=== PATIENT | female | born 1965 | race Caucasian/White ===

== ENCOUNTER 2024-08-11 13:10 | Inpatient (IN) | payer OTHER, SELFPAY ==
--- NOTE | ~2024-08-11 | FL_ITS ---
EXAMINATION: FL GUIDANCE ONLY HISTORY: stone right COMPARISON: Correlation is made with a CT of the abdomen and pelvis with contrast dated 08/11/2024. TECHNIQUE: Fluoroscopy time: 12.2 seconds. Cumulative Dose: 3.31 mGy. Images: 4. FINDINGS: Fluoroscopic spot films demonstrate opacification of the mid and distal left ureter, which is normal in caliber. No filling defects are seen. The proximal portion of the ureter and the left renal collecting system are not opacified. The final image demonstrates the proximal portion of a left nephroureteral stent in place. FL/FL guidance in OR IMPRESSION: Fluoroscopy during procedure. Please see procedure report for additional information. Electronically signed by: Jeffery Reaves MD 08/12/2024 01:32 PM EDT
--- NOTE | ~2024-08-11 | US_ITS ---
CLINICAL HISTORY: RUQ tenderness, n v Limited abdominal ultrasound Comparison: None Findings: The common bile duct is normal in diameter, measuring 0.3 cm. No cholelithiasis. No wall thickening or pericholecystic fluid. Negative sonographic Issa sign. Impression: Negative for acute cholecystitis. This document has been electronically signed by: Shivani Springer MD on 08/11/2024 17:51:28
--- NOTE | ~2024-08-11 | CT_ITS ---
CLINICAL HISTORY: LLQ tenderness CT abdomen and pelvis with contrast Comparison: US - US ABDOMEN LIMITED - 08/11/24 17:21 EDT Findings: No consolidation at the lung bases. Unremarkable gallbladder. No bladder stone. Question mild wall thickening of the bladder. There is a stone in the left proximal ureter measuring 1.1 x 1.5 x 1.5 cm which causes moderate hydronephrosis. Left nephrolithiasis measures up to 1.8 cm. There is mucosal hyperenhancement of the left ureter. No right hydronephrosis. The right kidney is beginning to excrete contrast; no identified right nephrolithiasis. Hepatomegaly, measuring 21 cm in craniocaudal dimension. Thickened endometrium measuring 2.9 cm. Retroverted uterus. The other solid organs are unremarkable. No bowel wall thickening or dilation. A normal appendix is identified. No aneurysm. Moderate calcified atherosclerotic disease. No lymphadenopathy. No ascites. No acute osseous abnormality. Impression: 1.5 cm stone in the left proximal ureter causing moderate hydronephrosis. Mucosal hyperenhancement of the left ureter may indicate ureteritis. Question mild wall thickening of the bladder. Correlate with urinalysis to exclude cystitis. Thickened endometrium. Nonemergent pelvic ultrasound and referral to gynecology is recommended. This document has been electronically signed by: Shivani Springer MD on 08/11/2024 18:40:10
--- NOTE | ~2024-08-11 | CT_ITS ---
EXAMINATION: CT HEAD WITHOUT CONTRAST CLINICAL INFORMATION: headache COMPARISON: None available. TECHNIQUE: Contiguous axial imaging was performed from the skull base to vertex without intravenous administration of contrast. This CT examination was performed using dose optimization techniques as appropriate, variously including the following: *Automated exposure control *Adjustment of mA and/or kV according to patient size (this includes techniques or standardized protocols for targeted exams where dose is matched to indication/reason for exam; i.e. extremities or head) *Use of iterative reconstruction technique DLP: 643 mGy-cm FINDINGS: No acute intracranial hemorrhage, mass effect, midline shift, hydrocephalus or herniation. Focal, bandlike shaped encephalomalacia involving posterior limb left internal capsule into the left frontal ocrley radiata white matter. [place]-white matter differentiation is normal. Slight asymmetric morphology of the lateral ventricles likely congenital. Posterior cranial fossa contents demonstrated no acute hemorrhage or gross mass effect. Sellar/suprasellar region demonstrated no gross masses. Craniocervical junction demonstrates normal position of the cerebellar tonsils. Retention cysts versus polyp, right sphenoid ethmoid recess. Tympanic cavities and mastoid cells are aerated. No acute fracture in the bony calvarium. CT/CT head/brain wo IV con IMPRESSION: No acute intracranial hemorrhage. Probable prior vascular insult posterior limb, left internal capsule. Retention cysts versus polyp, right sphenoid ethmoid recess. Electronically signed by: Mani Carson MD 08/11/2024 03:36 PM EDT
[2024-08-11 13:36] VITALS: BP 140/76; PULSE 100; O2SAT 99
[2024-08-11 14:17] VITALS: BP 114/70; PULSE 107; RESP 18; TEMP 37.1; O2SAT 96; BMI 35.1
--- NOTE | 2024-08-11 14:59 | ECG_ITS ---
Test Reason : n/v Blood Pressure : */* mmHG Vent. Rate : 106 BPM Atrial Rate : 106 BPM P-R Int : 130 ms QRS Dur : 72 ms QT Int : 332 ms P-R-T Axes : 47 21 -34 degrees QTcB Int : [address] & T wave abnormality, consider inferior ischemia Abnormal ECG No previous ECGs available Referred By: Alvaro Ortega Electronically Signed By: BENJI RHOADES MD
--- NOTE | 2024-08-11 14:59 | ED.GENADULT ---
HPI - General Adult General Chief complaint: General Medical Stated complaint: NAUSEA,VOMITING,FEVER,CAMPBELL,LLQ PAIN PER EMS Time Seen by Provider: 08/11/24 15:49 Source: patient, family (daughter), EMS, RN notes reviewed and old records reviewed Mode of arrival: EMS Limitations: no limitations History of Present Illness ED Provider: Keturah [facility] narrative: Patient is a 58-year-old Samoan speaking female with history of HTN, T2DM, recent CVA within last 6 mos per daughter, recently moved here from [place] within the past month presenting to the ED from urgent care with complaint of fever, headache, myalgias, nausea, vomiting and diarrhea since yesterday. Daughter states that both she and her brother were recently sick with similar symptoms. Patient denies chest pain, palpitations, dyspnea, cough. Denies urinary symptoms. Denies hematemesis, hematochezia, melena. Daughter states patient tested negative for flu, Covid, and strep at this am. Patient complains of mild headache and LLQ pain at this time. MD complaint: fever, n/v/d, myalgias Onset (ago): day(s) Related Data Home Medications ?Medication ?Instructions ?Recorded ?Confirmed amlodipine 5 mg tablet 5 mg PO DAILY 08/11/24 08/11/24 aspirin 81 mg chewable tablet 1 tab PO DAILY 08/11/24 08/11/24 atorvastatin 80 mg tablet 80 mg PO BEDTIME 08/11/24 08/11/24 metformin 500 mg tablet 500 mg PO DAILY 08/11/24 08/11/24 metoprolol tartrate 25 mg tablet 25 mg PO BID 08/11/24 08/11/24 nicotine 14 mg/24 hr daily 1 patch topical DAILY 08/11/24 08/11/24 transdermal patch Allergies Allergy/AdvReac Type Severity Reaction Status Date / Time No Known Allergies Allergy Verified 08/11/24 14:19 Review of Systems Review of Systems: As per HPI. Yes all other systems are reviewed and are negative Constitutional: Constitutional: Reports as per HPI [facility] Past Medical History Medical History Hyperlipidemia Obesity CVA (cerebral vascular accident) Essential hypertension Type 2 diabetes mellitus Social History Social History Household Members: Children Housing: House Do you presently have visiting nurse or other home services: No Patient Tobacco Use Status: Never used Tobacco Tobacco use type: Cigarette Second Hand Smoke Exposure: No Physical Exam ED Vital Signs: Vital Signs - 24 hr 08/11/24 14:17 08/11/24 16:53 Temperature 98.8 F Pulse Rate 107 H 94 Respiratory Rate 18 18 Blood Pressure 114/70 123/70 Pulse Oximetry 96 96 Oxygen Delivery Method Room Air Room Air BMI result Body Mass Index 35.1 Vital signs have been reviewed and appear to be correct. Blood pressure normal. Heart rate slightly tachycardic. Respiratory rate normal. Temperature normal. Oxygen saturation normal. Const General: cooperative, healthy appearing and no acute distress Orientation/consciousness: oriented to person, oriented to place, oriented to time and patient oriented x3 Limitations: no limitations HENMT Head: Yes normocephalic and Yes atraumatic Ears: external ears normal General nose exam: Normal external nose present Face and sinus: Yes face symmetric Mouth: oropharynx normal and moist mucous membranes Throat: Yes uvula midline Eyes Pupils: Equal, round and reactive pupils present Neck Neck: Yes normal visual inspection and Yes supple Resp Effort & Inspection: normal respiratory effort and able to speak in complete sentences Auscultation: clear to auscultation bilaterally Cardio Rate: regular rate Rhythm: regular rhythm Heart sounds: S1 normal heart sound present and S2 normal heart sound present GI Palpation (GI): Soft to palpation, Tenderness to palpation present (GI) in the LLQ and in the RUQ (mild, neg Issa's), no guarding and No Rebound tenderness present Auscultation: normoactive bowel sounds General: Yes no CVA tenderness Back/Spine/Pelvis Back: no CVA tenderness Skin General skin exam: elasticity normal and turgor normal Neuro General: oriented to person, oriented to place, oriented to time, patient oriented x3, moves all extremities, no focal motor deficits and CN's II-XI intact bilaterally Cranial nerves: Yes Equal, round and reactive pupils present Cognition (Neuro): normal cognition Extrem General: Yes full ROM, Yes no pedal edema and Yes no calf tenderness Psych Mental Status: mental status grossly normal Affect: normal affect Thought process: Normal thought process present Course Course Course Narrative: RME: 58-year-old female with history of stroke presents to ED for nausea vomiting abdominal pain and headache patient was sent from urgent Care to the ED for evaluation. Patient was giving some lingual and Zofran at urgent care and symptoms resolve but patient came to ED to be evaluated. Labs EKG head CT scan UA ordered Medications Administered Generic Name Dose Route Start Last Admin Trade Name Kristie PRN Reason Stop Dose Admin Amlodipine Besylate 5 mg 08/12/24 09:00 08/12/24 08:50 Amlodipine Besylate 5 Mg Tablet PO 5 mg DAILY CRICKET Administration Protocol Ceftriaxone Sodium 1 gm 08/12/24 09:00 08/12/24 08:50 Ceftriaxone Sodium 1 Gm Vial IVPUSH 1 gm Q24H CRICKET Administration Sodium Chloride 1,000 mls @ 100 mls/hr 08/12/24 16:15 08/12/24 16:30 Ns IVCONT 100 mls/hr .Q10H CRICKET Administration Insulin Human Lispro 0 unit 08/11/24 21:00 08/12/24 21:18 Insulin Lispro 100 Unit/Ml 3 Ml Vial SUBCUT Not Given QIDACHS CRICKET Protocol Metoprolol Tartrate 25 mg 08/12/24 09:00 08/12/24 08:50 Metoprolol Tartrate 25 Mg Tablet PO 25 mg BID CRICKET Administration Protocol Nicotine 14 mg 08/12/24 09:00 08/12/24 09:06 Nicotine 14 Mg Patch.Td24 TRANSDERMA Not Given DAILY CRICKET Nicotine Polacrilex 2 mg 08/12/24 16:08 08/12/24 16:31 Nicotine Polacrilex 2 Mg Gum BUCCAL 2 mg Q2H PRN Administration Nicotine Cravings Sodium Chloride 3 ml 08/12/24 00:00 08/12/24 16:33 0.9 % Sodium Chloride Flush 3 Ml Syringe IVFLUSH 3 ml QSHIFT CRICKET Administration Discontinued Medications Generic Name Dose Route Start Last Admin Trade Name Kristie PRN Reason Stop Dose Admin Ceftriaxone Sodium 1 gm 08/11/24 18:47 08/11/24 19:17 Ceftriaxone Sodium 1 Gm Vial IVPUSH 08/11/24 18:48 1 gm ONCE ONE Administration Hydromorphone HCl 0.25 mg 08/12/24 12:06 08/12/24 13:22 Hydromorphone Hcl 0.5 Mg/0.5 Ml Syringe IVPUSH 08/12/24 18:07 0.25 mg Q5M PRN Administration Pain, Moderate to Severe (Pain Scale 4-10) Lactated Ringer's 1,000 mls @ 80 mls/hr 08/11/24 20:30 08/12/24 13:54 Lr IVCONT 08/12/24 08:59 Infused .[id number] CRICKET Infusion Iohexol 100 ml 08/11/24 17:38 08/11/24 17:38 Iohexol 350 Mg/Ml 100 Ml Infus..Btl IV 08/11/24 17:39 85 ml ONCE ONE Administration Prednisone 20 mg 08/11/24 18:51 08/11/24 19:17 Prednisone 20 Mg Tablet PO 08/11/24 18:52 20 mg ONCE ONE Administration Medical Decision Making Medical Decision Making MDM Narrative: Patient is a 58-year-old female with history of HTN, T2DM, recent CVA within last 6 mos per daughter, recently moved here from [place] within the past month presenting to the ED from urgent care with complaint of fever, headache, myalgias, nausea, vomiting and diarrhea since yesterday. On exam patient is awake, A+Ox3, VS WNL, afebrile, normal neurological exam without focal deficits, physical exam findings as above. Given reported symptoms and physical exam findings, initial differential includes but is not limited to viral illness, Covid, flu, gastroenteritis, cholecystitis, diverticulitis. Labs notable for no leukocytosis, no significant electrolyte abnormalities, elecated Tbili, slightly elevated AST and alk phos. CT head ordered by triage provider notable for no acute ICH, probably prior vascular insult posterior limb which correlates with daughter's report of recent CVA. RUQ U/S without evidence of cholecystitis. My interpretation is in agreement with the radiologist's interpretation. UA notable for 3+ leukocytes, 3+ blood, positive nitrites, 4+ bacteria. Viral panel negative. CT A/P notable for 1.5cm stone to proximal left ureter with moderate hydro and mucosal hyperenhancement of the left ureter, question of mild wall thickening of bladder. IV ceftriaxone and prednisone ordered. Case discussed with Dr. Stacy who would like patient admitted and NPO after midnight. Admission to medicine accepted by Dr. Peña. Differential Diagnosis Differential Diagnoses: The differential diagnosis associated with the presentation includes As per [facility] Admission/Observation Consideration of admission/observation: Escalation of care including admission/observation considered Patient would have been admitted to the hospital had their work up had any findings where hospital admission was appropriate and their clinical presentation warranted hospital admission. Consult Healthcare Provider Management of the patient was discussed with: Hospitalist and Phlebotomy Support Tech (Dr. Stacy) Lab Data [facility] Lab Attestation statement: I reviewed the patient's lab results. As per [facility] 08/11/24 20:32 08/12/24 07:49 Labs: Lab Results 08/11/24 08/11/24 Range/Units 15:20 16:51 WBC 8.3 (4.8-10.8) X10*3/uL RBC 4.17 L (4.20-5.50) X10*6/uL Hgb 12.2 (12.0-16.0) g/dl Hct 35.3 L (37.0-47.0) % MCV 84.7 (80.0-98.0) fL MCH 29.3 (27.0-33.0) pg MCHC 34.6 (31.0-35.0) g/dl RDW 11.9 (11.0-16.0) % Plt Count 169 (160-400) X10*3/uL MPV 10.4 (9.4-12.3) fL Immature Gran % (Auto) 0.4 (0.0-0.4) % Neut % (Auto) 78.1 H (45-73) % Lymph % (Auto) 12.2 L (20-40) % [place] % (Auto) 9.2 (2-11) % Eos % (Auto) 0.0 (0-4) % Baso % (Auto) 0.1 (0-2) % Lymph # (Auto) 1.0 L (1.2-4.9) X10*3/uL [place] # (Auto) 0.8 (0.1-1.2) X10*3/uL Eos # (Auto) 0.0 (0.0-0.4) X10*3/uL Baso # (Auto) 0.0 (0.0-0.2) X10*3/uL Abs Immat Gran (auto) 0.03 (0.00-0.03) X10*3/uL Absolute Neuts (auto) 6.5 (2.0-8.3) x10*3/uL Absolute Nucleated RBC 0.000 (0.0-0.012) X10*3/uL Nucleated RBC % (auto) 0.0 (0.0-0.2) /100WBC Sodium 133 L (135-145) mmol/L Potassium 3.5 (3.3-5.1) mmol/L Chloride 101 (96-108) mmol/L Carbon Dioxide 23 (22-29) mmol/L Anion Gap 13 (12-20) BUN 11 (9-16) mg/dL Creatinine 0.86 (0.5-1.4) mg/dL Estim Creat Clear Calc 59.8 Estimated GFR > 60 Random Glucose 205 H (60-115) mg/dL Calcium 9.4 (8.4-10.2) mg/dL Total Bilirubin 2.4 H (0.0-1.0) mg/dL AST 39 H (5-31) U/L ALT 22 (0-31) U/L Alkaline Phosphatase 137 H (39-117) U/L Troponin I High Sens < 2.7 (<3.5-17.0) ng/L Total Protein 7.8 (6.5-8.0) g/dL Albumin 4.2 (3.5-5.0) g/dL Lipase 23 (8-78) U/L Urine Color Dark Yellow Urine Appearance Turbid Urine pH 6.0 (5.0-9.0) Ur Specific [place] 1.015 (1.005-1.025) Urine Protein 100 (2+) H (Neg-Trace) mg/dL Urine Glucose (UA) Negative (Negative) mg/dL Urine Ketones Trace (Negative) mg/dL Urine Blood Large (3+) H (Negative) Urine Nitrite Positive H (Negative) Ur Leukocyte Esterase Large (3+) H (Negative) Urine RBC 11-20 H (0-2) /HPF Urine WBC >50 H (0-5) /HPF Ur Squamous Epith Cells 6-10 (0-2) /HPF Urine Bacteria 4+ (None Seen) Hyaline Casts 0-2 (0-2) /LPF Influenza Type A (PCR) NEGATIVE (Negative) Influenza Type B (PCR) NEGATIVE (Negative) RSV RNA Qual (PCR) NEGATIVE (Negative) SARS-CoV-2 RNA (RT-PCR) NEGATIVE (Negative) Independent Interpretation I performed an independent interpretation of an: Ultrasound and CT Scan Interpretation: RUQ U/S without evidence of cholecystitis. Radiology Impression Discussion of test interpretation with radiology: I have reviewed the radiologist's reading. Radiologist Impression: Impression: 1.5 cm stone in the left proximal ureter causing moderate hydronephrosis. Mucosal hyperenhancement of the left ureter may indicate ureteritis. Question mild wall thickening of the bladder. Correlate with urinalysis to exclude cystitis. Thickened endometrium. Nonemergent pelvic ultrasound and referral to gynecology is recommended. CLINICAL HISTORY: RUQ tenderness, n v Limited abdominal ultrasound Comparison: None Findings: The common bile duct is normal in diameter, measuring 0.3 cm. No cholelithiasis. No wall thickening or pericholecystic fluid. Negative sonographic Issa sign. Impression: Negative for acute cholecystitis. Independent Historian Clinical information obtained from an independent historian. History obtained from or confirmed by: Other (daughter) External Record Review External record reviewed: Inpatient record, Office record and Outpatient record Prescription Management I considered prescription management with: Antibiotic Discharge Plan Discharge Clinical Impression: Hydronephrosis with urinary obstruction due to ureteral calculus UTI (urinary tract infection) Qualifiers: Urinary tract infection type: acute cystitis Hematuria presence: without hematuria Qualified Code(s): N30.00 - Acute cystitis without hematuria Patient Disposition: Admitted As Inpatient Discharge Date/Time: 08/12/24 09:48
[2024-08-11 15:25] LABS: MANUAL DIFF FLAG NO
[2024-08-11 15:26] LABS: Basophils Percent Auto 0.1 % (0-2); Hematocrit 35.3 % (37.0-47.0); Hemoglobin 12.2 g/dl (12.0-16.0); Imm Gran Abs Auto 0.03 X10*3/uL (0.00-0.03); Imm Gran Pct Auto 0.4 % (0.0-0.4); Lymphocytes Percent Auto 12.2 % (20-40); Mean Corpuscular HGB Conc 34.6 g/dl (31.0-35.0); Mean Corpuscular Hemoglobin 29.3 pg (27.0-33.0); Mean Corpuscular Volume 84.7 fL (80.0-98.0); Mean Platelet Volume 10.4 fL (9.4-12.3); Monocytes Absolute Auto 0.8 X10*3/uL (0.1-1.2); Monocytes Percent Auto 9.2 % (2-11); Neutrophils Absolute Auto 6.5 x10*3/uL (2.0-8.3); Neutrophils Percent Auto 78.1 % (45-73); Platelet Count 169 X10*3/uL (160-400); Red Blood Count 4.17 X10*6/uL (4.20-5.50); Red Cell Distribution Width 11.9 % (11.0-16.0); White Blood Count 8.3 X10*3/uL (4.8-10.8)
[2024-08-11 15:45] LABS: Alanine Aminotransferase 22 U/L (0-31); Albumin Level 4.2 g/dL (3.5-5.0); Alkaline Phosphatase 137 U/L (39-117); Anion Gap 13 (12-20); Aspartate Amino Transferase 39 U/L (5-31); Bilirubin Total 2.4 mg/dL (0.0-1.0); Blood Urea Nitrogen 11 mg/dL (9-16); Calcium 9.4 mg/dL (8.4-10.2); Carbon Dioxide 23 mmol/L (22-29); Chloride 101 mmol/L (96-108); Creatinine Clr Calc Pharmacy 59.8; Estimated Glomerular Filt Rate > 60; Glucose Random 205 mg/dL (60-115); Lipase 23 U/L (8-78); Potassium 3.5 mmol/L (3.3-5.1); Sodium 133 mmol/L (135-145); Total Protein 7.8 g/dL (6.5-8.0)
[2024-08-11 15:53] LABS: Troponin-I High Sensitivity < 2.7 ng/L (<3.5-17.0)
[2024-08-11 16:53] VITALS: BP 123/70; PULSE 94; RESP 18; O2SAT 96
[2024-08-11 17:02] LABS: Appearance Urine Turbid; Color Urine Dark Yellow; Glucose Urine UA Negative (Negative); Leukocyte Esterase Urine Large (3+) (Negative); Nitrite Urine Positive (Negative); Specific Gravity - Urine 1.015 (1.005-1.025); UMIC TRIGGER UACC YES; Urine Blood Large (3+) (Negative); Urine Ketones Trace mg/dL (Negative); Urine Protein 100 (2+) mg/dL (Neg-Trace)
[2024-08-11 17:04] LABS: Bacteria Urine 4+ (None Seen); Hyaline Casts Urine 0-2 /LPF (0-2); UACC Culture Trigger YES; WBC Urine >50 /HPF (0-5)
[2024-08-11] MEDS: iohexoL 350 MG/ML 100 ML INFUS..BTL IV (17:38)
[2024-08-11 17:47] LABS: Influenza A PCR NEGATIVE (Negative); Influenza B PCR NEGATIVE (Negative); Resp Syncy Virus RNA Qual PCR NEGATIVE (Negative); SARS COV2 PCR INHOUSE NEGATIVE (Negative)
--- OUTSIDE RECORDS SUMMARY | 2024-08-11 18:07 | XMS_ITS | Clinical Summary ---
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 Name Role Phone Mirna Stringer MD Primary Care Provider [phone] Social History Tobacco Use Types Packs/Day Years Used Date Smoking Tobacco: Never Assessed Comments Unknown Sex and Gender Information Value Date Recorded Sex Assigned at Not on file Legal Sex Female 7:28 AM EDT Gender Identity Not on file Sexual Orientation Not on file Plan of Treatment Upcoming Encounters Date Type Department Care Team ([facility] Contact Info) Description 10/13/2024 9:00 AM EDT Consult Orthopedic Surgery - [place] [address] [phone] Chip Cerda, DPM [address] [address] Health Maintenance Due Date Last Done Comments Breast Cancer Screening 1966 DTaP,Tdap,and Td Vaccines (1 - Tdap) 1985 Hepatitis B Vaccines (1 of 3 - 19+ 3-dose series) 1985 Cervical Cancer Screening: P ap Smear 08/18/1987 Pneumococcal Vaccine: 50+ Ye ars (1 of 1 - PCV) 2016 Zoster Vaccines (1 of 2) 2016 COVID-19 Vaccine (2023-2 5 season) 2023 Colorectal Cancer Screening: Colonoscopy 07/21/2024 Depression Screening 07/21/2024 HIV Screening 07/21/2024 Hepatitis C Screening 07/21/2024 Social Influencers of Health Screening 07/21/2024 Influenza Vaccine (Season Ended) 2024 HIB Vaccines Aged Out No longer eligi ble based on patient's age to complete this topic HPV Vaccines Aged Out No longer eligi ble based on patient's age to complete this topic Hepatitis A Vaccines Aged Out No long er eligible based on patient's age to complete this topic IPV Vaccines Aged Out No longer eligi ble based on patient's age to complete this topic MMR Vaccines Aged Out No longer eligi ble based on patient's age to complete this topic Meningococcal ACWY Vaccine Aged Out N o longer eligible based on patient's age to complete this topic Meningococcal B Vaccine Aged Out No l onger eligible based on patient's age to complete this topic Pneumococcal Vaccine: Pediat rics (0 to 5 Years) and At-Risk Patients (6 to 64 Years) Aged Out No longer eligible b ased on patient's age to complete this topic RSV Immunization Patients Un misti 20 months Aged Out No longer eligible b ased on patient's age to complete this topic Varicella Vaccines Aged Out No longer eligible based on patient's age to complete this topic Insurance [facility] Care Teams Scrap Crane Operator Relationship Specialty Start Date End Date Mirna Stringer MD [address] [place] [address] PCP - General Internal Medicine 07/21/24
[2024-08-11] MEDS: predniSONE 20 MG TABLET PO (19:17)
[2024-08-11] MEDS: cefTRIAXone sodium 1 GM VIAL IVPUSH (19:17)
--- NOTE | 2024-08-11 19:46 | P.CNUR_ITS ---
History of Present Illness Consult details Consult date: 08/11/24 Narrative: CC: Renal stone right 58-year-old Belizean-speaking female prior history type 2 diabetes Presents to emergency room after transfer from urgent care Complaint of fever, weakness, nausea, vomiting for past 24 hours Denies urinary symptoms such as dysuria, hematuria Investigations - WBC 8.3 creatinine 0.8 - UA positive nitrites positive bacteria positive leukocytes Imaging - CT 1.5 cm stone in the left proximal ureter causing moderate hydronephrosis. Mucosal hyperenhancement of the left ureter may indicate ureteritis. Recommend admission to Medicine IV fluids IV antibiotics NPO after midnight with plan for stent placement tomorrow Review of Systems 2 Constitutional: Constitutional: Reports as per HPI and Reports no additional constitutional complaints Cardiovascular: Cardiovascular: Reports as per HPI and Reports no additional cardiovascular complaints Respiratory: Respiratory: Reports as per HPI and Reports no additional respiratory complaints Gastrointestinal: Gastrointestinal: Reports as per HPI and Reports no additional gastrointestinal complaints Genitourinary: Genitourinary: Reports as per HPI Musculoskeletal: Musculoskeletal: Reports no additional musculoskeletal complaints and Reports as per HPI Neurologic: Reports system reviewed and no additional complaints, except as documented and Reports as per HPI [facility] Social History Social History Smoked in Last 30 Days: No Use of substances other than those prescribed or required for medical reasons: No Advance Directives: No Advance Directives Information Provided: No Do you have a plan to hurt others: No Plan Patient : No Meds Allergies Allergy/AdvReac Type Severity Reaction Status Date / Time No Known Allergies Allergy Verified 08/11/24 14:19 Home Medications ?Medication ?Instructions ?Recorded ?Confirmed ?Last Taken ?Type amlodipine 5 mg tablet 5 mg PO DAILY 08/11/24 Unknown History aspirin 81 mg chewable tablet 1 tab PO DAILY 08/11/24 Unknown History atorvastatin 80 mg tablet 80 mg PO BEDTIME 08/11/24 Unknown History metformin 500 mg tablet 500 mg PO QAM 08/11/24 Unknown History metoprolol tartrate 25 mg tablet 25 mg PO BID 08/11/24 Unknown History nicotine 14 mg/24 hr daily 1 patch topical DAILY 08/11/24 Unknown History transdermal patch Physical Exam 2 Vital Signs: Vital Signs: Last Vital Signs Temp 98.8 F 08/11/24 14:17 Pulse 94 08/11/24 16:53 Resp 18 08/11/24 16:53 BP 123/70 08/11/24 16:53 Pulse Ox 96 08/11/24 16:53 O2 Del Method Room Air 08/11/24 16:53 BMI result Body Mass Index 35.1 Const: General: cooperative, healthy appearing, comfortable and no acute distress Orientation/consciousness: patient oriented x3 HEENT: Face and sinus: Yes normal facial exam Mouth: moist mucous membranes Neck: Neck: Yes normal visual inspection, Yes full ROM and Yes trachea midline Chest: Chest palpation & inspection: normal inspection of the chest Resp: Effort & Inspection: normal respiratory effort, able to speak in complete sentences and no respiratory distress GI: Inspection: Yes normal to inspection Back/Spine/Pelvis: Cervical Spine: normal cervical lordosis Thoracic/Lumbar Spine: thoracic and lumbar spine normal to inspection Skin: General skin exam: no rashes or lesions noted Neuro: General: patient oriented x3, tone normal and moves all extremities Extrem: General: Yes normal to inspection and Yes capillary refill normal Results Labs 08/11/24 15:20 08/11/24 15:20 Labs: Abnormal lab results 08/11/24 08/11/24 Range/Units 15:20 16:51 RBC 4.17 L (4.20-5.50) X10*6/uL Hct 35.3 L (37.0-47.0) % Neut % (Auto) 78.1 H (45-73) % Lymph % (Auto) 12.2 L (20-40) % Lymph # (Auto) 1.0 L (1.2-4.9) X10*3/uL Sodium 133 L (135-145) mmol/L Random Glucose 205 H (60-115) mg/dL Total Bilirubin 2.4 H (0.0-1.0) mg/dL AST 39 H (5-31) U/L Alkaline Phosphatase 137 H (39-117) U/L Urine Protein 100 (2+) H (Neg-Trace) mg/dL Urine Blood Large (3+) H (Negative) Urine Nitrite Positive H (Negative) Ur Leukocyte Esterase Large (3+) H (Negative) Urine RBC 11-20 H (0-2) /HPF Urine WBC >50 H (0-5) /HPF Short CBC 08/11/24 Range/Units 15:20 WBC 8.3 (4.8-10.8) X10*3/uL Hgb 12.2 (12.0-16.0) g/dl Hct 35.3 L (37.0-47.0) % Plt Count 169 (160-400) X10*3/uL BMP 08/11/24 15:20 Sodium 133 L Potassium 3.5 Chloride 101 Carbon Dioxide 23 BUN 11 Creatinine 0.86 Calcium 9.4 Liver Function 08/11/24 Range/Units 15:20 Total Bilirubin 2.4 H (0.0-1.0) mg/dL AST 39 H (5-31) U/L ALT 22 (0-31) U/L Alkaline Phosphatase 137 H (39-117) U/L Albumin 4.2 (3.5-5.0) g/dL Urine 08/11/24 Range/Units 16:51 Urine Color Dark Yellow Urine Appearance Turbid Urine pH 6.0 (5.0-9.0) Ur Specific [place] 1.015 (1.005-1.025) Urine Protein 100 (2+) H (Neg-Trace) mg/dL Urine Glucose (UA) Negative (Negative) mg/dL All other labs normal. Assessment and Plan (1) Hydronephrosis with urinary obstruction due to ureteral calculus: Status: Acute (2) UTI (urinary tract infection): Status: Acute Plan Risks, benefits and alternatives to therapy were discussed. These include but are not limited to infection, bleeding, damage to local organs and tissues, need for further interventions. Anesthetic risks regarding cardiac arrhythmia, blood clots, and potential mortality were discussed. The patient understands the typical recovery time and the outpatient nature of the procedure. After consideration of these risks the patient gives full informed consent and they wish to move ahead with the procedure. Cystoscopy, right retrograde, right stent placement Procedures Date of Service Date of Service: 08/11/24
--- NOTE | 2024-08-11 20:26 | P.HPHOSP_ITS ---
History of Present Illness Date of Service: 08/11/24 Attending physician on admission: Devendra Delgadillo Chief Complaint: Abdominal pain Juli Peña is a 58 years old woman with past medical history significant for recent CVA, essential hypertension, hyperlipidemia and type 2 diabetes mellitus on metformin presents to the emergency department complaining of 3 days' history of left lower quadrant pain associated with mild pain with urination, nausea, fever, chills, vomiting, loose stools and headache. Denied bloody urine. She described pain as sharp radiating to the genitals; intensity 10/10 (but now 0/10). She had a similar episode in the past but never have had urinary interventions. She did not report chest pain or shortness on breath. He is a tobacco and marijuana smoker. She denied alcohol abuse or illicit drug use. She denied any abdominal surgeries. In the ED, she was found to have stable vital signs. Blood workup showed no leukocytosis. Hemoglobin is 11.5 and platelets 120. There are no significant electrolyte imbalances. Renal function is normal. Glucose is 205. LFTs: Bilirubin 2.4, AST 39, ALT 22 and alk-phos 137. Troponin and lipase are normal. Abdomen pelvis CT scan showed renal calculi that measure 1.5 cm in the left proximal ureter causing moderate hydronephrosis, and finding likely consistent with ureteritis and cystitis. It was noted that her endometrium was thickened and non Urgent pelvic ultrasound was recommended. ED tx: Ceftriaxone 1 g IV, prednisone 20 mg p.o. Review of Systems 2 Review of Systems: All 12 systems were reviewed and normal except as noted in HPI. [facility] Medical History (Updated 08/11/24 @ 21:17 by Devendra Delgadillo MD) Hyperlipidemia Obesity CVA (cerebral vascular accident) Essential hypertension Type 2 diabetes mellitus Social History Smoked in Last 30 Days: No Use of substances other than those prescribed or required for medical reasons: No Advance Directives: No Advance Directives Information Provided: No Do you have a plan to hurt others: No Plan Patient : No Meds Allergies Allergy/AdvReac Type Severity Reaction Status Date / Time No Known Allergies Allergy Verified 08/11/24 14:19 Active Medications: Current Medications Acetaminophen (Acetaminophen 325 Mg Tablet) 650 mg PO Q6H PRN PRN Reason: Pain, Mild 1-3,fever,headache Calcium Carbonate (Calcium Carbonate 750 Mg Tab.Chew) 750 mg PO Q4H PRN PRN Reason: Heartburn Dextrose (Dextrose 50 % 25 Gm/50 Ml Syringe) 25 gm IVPUSH Q15M PRN; Protocol PRN Reason: per Hypoglycemia Standing Ord. Glucose (Glucose Gel 15 Gm Gel..Gram.) 15 gm PO Q15M PRN; Protocol PRN Reason: per Hypoglycemia Standing Ord. Hydromorphone HCl (Hydromorphone Hcl 0.5 Mg/0.5 Ml Syringe) 0.5 mg IVPUSH Q3H PRN; Protocol PRN Reason: Pain, Severe (Pain Scale 7-10) Lactated Ringer's (Lr) 1,000 mls @ 80 mls/hr IVCONT .[id number] [facility] Stop: 08/12/24 08:59 Insulin Human Lispro (Insulin Lispro 100 Unit/Ml 3 Ml Vial) 0 unit SUBCUT QIDACHS [facility]; Protocol Ketorolac Tromethamine (Ketorolac Tromethamine 15 Mg/Ml Vial) 15 mg IVPUSH Q6H PRN PRN Reason: Pain, Moderate(Pain Scale 4-6) Magnesium Hydroxide (Milk Of Magnesia 30 Ml Oral.Susp) 30 ml PO DAILY PRN PRN Reason: Constipation Melatonin (Melatonin 3 Mg Tablet) 6 mg PO BEDTIME PRN PRN Reason: Insomnia Ondansetron HCl (Ondansetron Hcl 4 Mg/2 Ml Vial) 4 mg IVPUSH Q6H PRN PRN Reason: Nausea and Vomiting Sodium Chloride (0.9 % Sodium Chloride Flush 3 Ml Syringe) 3 ml IVFSH [facility] Home Medications ?Medication ?Instructions ?Recorded ?Confirmed ?Last Taken ?Type amlodipine 5 mg tablet 5 mg PO DAILY 08/11/24 08/11/24 08/11/24 History aspirin 81 mg chewable tablet 1 tab PO DAILY 08/11/24 08/11/24 08/11/24 History atorvastatin 80 mg tablet 80 mg PO BEDTIME 08/11/24 08/11/24 08/10/24 History metformin 500 mg tablet 500 mg PO DAILY 08/11/24 08/11/24 08/11/24 History metoprolol tartrate 25 mg tablet 25 mg PO BID 08/11/24 08/11/24 08/11/24 History nicotine 14 mg/24 hr daily 1 patch topical DAILY 0608/11/24 08/11/24 History transdermal patch Physical Exam 2 Vital Signs and Narrative: Vital Signs: Last Vital Signs Temp 98.8 F 08/11/24 14:17 Pulse 94 08/11/24 16:53 Resp 18 08/11/24 16:53 BP 123/70 08/11/24 16:53 Pulse Ox 96 08/11/24 16:53 O2 Del Method Room Air 08/11/24 16:53 BMI result Body Mass Index 35.1 Constitutional - Awake and Alert, No apparent distress. Pleasant. Cooperative. Obese. HEENT - PER, EOMI. Icteric sclerae. Heart - S1S2, RRR, No edema Lungs - Normal lung expansion, Normal respiratory effort, No respiratory distress, CTA bilaterally Abdomen - NT / ND; +BS; No rebound or guarding. - No CVA tenderness Extremities - no calf tenderness bilaterally, no swelling Musculoskeletal - Normal inspection, normal ROM Skin - Warm/Dry Neurological - Alert & oriented x3. No focal weakness grossly noted. Normal speech. Psychological - Appropriate affect Results Labs 08/11/24 20:32 08/11/24 15:20 Labs: Laboratory Results - last 24 hr 08/11/24 08/11/24 15:20 16:51 MCV 84.7 MCH 29.3 MCHC 34.6 RDW 11.9 Plt Count 169 MPV 10.4 Immature Gran % (Auto) 0.4 Neut % (Auto) 78.1 H Lymph % (Auto) 12.2 L [place] % (Auto) 9.2 Eos % (Auto) 0.0 Baso % (Auto) 0.1 Lymph # (Auto) 1.0 L [place] # (Auto) 0.8 Eos # (Auto) 0.0 Baso # (Auto) 0.0 Abs Immat Gran (auto) 0.03 Absolute Neuts (auto) 6.5 Absolute Nucleated RBC 0.000 Nucleated RBC % (auto) 0.0 Anion Gap 13 Estim Creat Clear Calc 59.8 Estimated GFR > 60 Random Glucose 205 H Calcium 9.4 Total Bilirubin 2.4 H AST 39 H ALT 22 Alkaline Phosphatase 137 H Troponin I High Sens < 2.7 Total Protein 7.8 Albumin 4.2 Lipase 23 Urine Color Dark Yellow Urine Appearance Turbid Urine pH 6.0 Ur Specific [place] 1.015 Urine Protein 100 (2+) H Urine Glucose (UA) Negative Urine Ketones Trace Urine Blood Large (3+) H Urine Nitrite Positive H Ur Leukocyte Esterase Large (3+) H Urine RBC 11-20 H Urine WBC >50 H Ur Squamous Epith Cells 6-10 Urine Bacteria 4+ Hyaline Casts 0-2 Influenza Type A (PCR) NEGATIVE Influenza Type B (PCR) NEGATIVE RSV RNA Qual (PCR) NEGATIVE SARS-CoV-2 RNA (RT-PCR) NEGATIVE Imaging Radiologist's Impressions: Impressions Head CT 08/11/24 14:07 IMPRESSION: No acute intracranial hemorrhage. Probable prior vascular insult posterior limb, left internal capsule. Retention cysts versus polyp, right sphenoid ethmoid recess. Electronically signed by: Mani Carson MD 08/11/2024 03:36 PM EDT RP Assessment and Plan (1) Hydronephrosis with urinary obstruction due to ureteral calculus: Status: Acute (2) UTI (urinary tract infection): Qualifiers: Urinary tract infection type: acute cystitis Hematuria presence: w ithout hematuria Qualified Code(s): N30.00 - Acute cystitis without hematuria Status: Acute Plan Juli Peña is a 58 years old woman admitted with: * Left hydronephrosis secondary to obstructive renal calculi (1.5 cm) associated with UTI. Admit to hospitalist service. NPO after midnight. Continue IV fluids. Pain control with Dilaudid and Zofran IV as needed. Continue empiric IV antibiotic therapy with ceftriaxone. Urology consult. Urine and blood culture obtained -will follow results. * Type 2 diabetes mellitus. Metformin on hold (received IV contrast). Insulin sliding scale while NPO. * Recent CVA. Continue aspirin and statin. * Essential hypertension. Continue amlodipine and metoprolol. * Hyperlipidemia. Continue atorvastatin. Code status: Full DVT prophylaxis: SCDs only (possible procedure in am). Patient will need hospitalization for at least 2 midnights for left hydronephrosis secondary to obstructive renal stone associated with UTI treatment with IV fluids, IV pain meds, empiric IV antibiotic therapy and evaluation by Urology for possible procedure. Quality Stroke Does the patient have a stroke diagnosis?: No VTE Prior VTE?: No VTE Risk Level:: Medical - moderate - high VTE Device Contraindication: N/A - Device Ordered VTE Drug Contraindication: Treatment Not Indicated
[2024-08-11] MEDS: Lactated Ringers 1,000 ML 80 ML IVCONT (20:31)
--- NOTE | 2024-08-11 20:33 | PHA.MEDREC ---
Addendum entered by Viviane Edgar RPh 08/11/24 21:04: reviewed Original Note: Pharmacy Consult ? Medication Reconciliation Pharmacy has completed the medication reconciliation. Spoke to patient son at bedside to confirm med list. Patient had her morning medications today.
[2024-08-11 20:36] VITALS: BP 123/61; PULSE 99; RESP 18; O2SAT 94
[2024-08-11 20:38] LABS: MANUAL DIFF FLAG NO
[2024-08-11 20:43] LABS: Basophils Percent Auto 0.3 % (0-2); Hematocrit 32.4 % (37.0-47.0); Hemoglobin 11.5 g/dl (12.0-16.0); Imm Gran Abs Auto 0.03 X10*3/uL (0.00-0.03); Imm Gran Pct Auto 0.4 % (0.0-0.4); Lymphocytes Absolute Auto 0.9 X10*3/uL (1.2-4.9); Lymphocytes Percent Auto 11.5 % (20-40); Mean Corpuscular HGB Conc 35.5 g/dl (31.0-35.0); Mean Corpuscular Hemoglobin 29.8 pg (27.0-33.0); Mean Corpuscular Volume 83.9 fL (80.0-98.0); Mean Platelet Volume 10.1 fL (9.4-12.3); Monocytes Absolute Auto 0.7 X10*3/uL (0.1-1.2); Monocytes Percent Auto 9.3 % (2-11); Neutrophils Percent Auto 78.5 % (45-73); Platelet Count 150 X10*3/uL (160-400); Red Blood Count 3.86 X10*6/uL (4.20-5.50); Red Cell Distribution Width 11.9 % (11.0-16.0); White Blood Count 7.6 X10*3/uL (4.8-10.8)
[2024-08-11 20:44] LABS: Glucose, Whole Blood 158 mg/dL (60-115)
--- NOTE | 2024-08-11 20:55 | PC.NURSE ---
Attempted report at this time. Was informed that primary RN Lissette, will call me back.
--- NOTE | 2024-08-11 21:14 | PC.NURSE ---
Report called to OF RN.
[2024-08-12] VITALS (14 sets, daily range): BP systolic 108–142; BP diastolic 55–79; PULSE 73–97; RESP 14–20; TEMP 36.4–37.2; O2SAT 94–100; BMI 37.3
--- NOTE | 2024-08-12 07:10 | PC.NURSE ---
Addendum entered by Gris Rico RN 08/12/24 07:11: Patient is a 58 years old woman with past medical history significant for recent CVA, essential hypertension, hyperlipidemia and type 2 diabetes mellitus on metformin presents to the emergency department complaining of 3 days' history of left lower quadrant pain associated with mild pain with urination, nausea, fever, chills, vomiting. Noted to have hydronephrosis secondary to a obstructive renal calculi. Patient alert and oriented, only hungarian speaking. Lungs clear bilat. Respirations even and non-labored. Abdomen soft, non-tender with positive bowel sounds. Positive pedal pulses with no edema. Daughter at the bedside. Original Note: Medical History Hyperlipidemia Obesity CVA (cerebral vascular accident) Essential hypertension Type 2 diabetes mellitus
[2024-08-12 07:23] LABS: Glucose, Whole Blood 204 mg/dL (60-115)
--- NOTE | 2024-08-12 08:31 | PC.NURSE ---
Report given to pre-op. Plan to transition to the OR at 11a.
[2024-08-12] MEDS: Metoprolol Tartrate 25 MG TABLET PO ×2 (08:50→21:37)
[2024-08-12] MEDS: amLODIPine Besylate 5 MG TABLET PO (08:50)
[2024-08-12] MEDS: cefTRIAXone sodium 1 GM VIAL IVPUSH (08:50)
[2024-08-12 09:13] LABS: Anion Gap 13 (12-20); Blood Urea Nitrogen 11 mg/dL (9-16); Calcium 9.1 mg/dL (8.4-10.2); Carbon Dioxide 24 mmol/L (22-29); Chloride 105 mmol/L (96-108); Creatinine Clr Calc Pharmacy 80.4; Estimated Glomerular Filt Rate > 60; Glucose Random 192 mg/dL (60-115); Potassium 3.4 mmol/L (3.3-5.1); Sodium 139 mmol/L (135-145)
--- NOTE | 2024-08-12 09:47 | PC.NURSE ---
Sent to pre-op for stent placement
--- NOTE | 2024-08-12 12:07 | HO.ANESPROP2 ---
HPI - Anesthesia Eval Consult details Narrative: 58 yo F presenting for right cystoscopy with stent placement. Hx of CVA with residual right-sided weakness PMFSH Active Problems Active Problems: All Active Problems Hydronephrosis with urinary obstruction due to ureteral calculus (Acute) UTI (urinary tract infection) (Acute) Past Medical History Medical History Hyperlipidemia Obesity CVA (cerebral vascular accident) Essential hypertension Type 2 diabetes mellitus Family History Family history of problems with anesthesia: No Surgical History History of Problems with Anesthesia: No Social History Social History Patient Tobacco Use Status: Current someday Tobacco user Tobacco use type: Cigarette Meds Allergies Allergy/AdvReac Type Severity Reaction Status Date / Time No Known Allergies Allergy Verified 08/11/24 14:19 Active Medications: Current Medications Acetaminophen (Acetaminophen 325 Mg Tablet) 650 mg PO Q6H PRN PRN Reason: Pain, Mild 1-3,fever,headache Amlodipine Besylate (Amlodipine Besylate 5 Mg Tablet) 5 mg PO DAILY [facility]; Protocol Last Admin: 08/12/24 08:50 Dose: 5 mg Aspirin (Aspirin 81 Mg Tab.Chew) 81 mg PO DAILY [facility] Atorvastatin Calcium (Atorvastatin Calcium 80 Mg Tablet) 80 mg PO BEDTIME [facility] Calcium Carbonate (Calcium Carbonate 750 Mg Tab.Chew) 750 mg PO Q4H PRN PRN Reason: Heartburn Ceftriaxone Sodium (Ceftriaxone Sodium 1 Gm Vial) 1 gm IVPUSH Q24H [facility] Last Admin: 08/12/24 08:50 Dose: 1 gm Dextrose (Dextrose 50 % 25 Gm/50 Ml Syringe) 25 gm IVPUSH Q15M PRN; Protocol PRN Reason: per Hypoglycemia Standing Ord. Glucose (Glucose Gel 15 Gm Gel..Gram.) 15 gm PO Q15M PRN; Protocol PRN Reason: per Hypoglycemia Standing Ord. Hydromorphone HCl (Hydromorphone Hcl 0.5 Mg/0.5 Ml Syringe) 0.5 mg IVPUSH Q3H PRN; Protocol PRN Reason: Pain, Severe (Pain Scale 7-10) Insulin Human Lispro (Insulin Lispro 100 Unit/Ml 3 Ml Vial) 0 unit SUBCUT QIDACHS [facility]; Protocol Last Admin: 08/12/24 08:07 Dose: Not Given Ketorolac Tromethamine (Ketorolac Tromethamine 15 Mg/Ml Vial) 15 mg IVPUSH Q6H PRN PRN Reason: Pain, Moderate(Pain Scale 4-6) Magnesium Hydroxide (Milk Of Magnesia 30 Ml Oral.Susp) 30 ml PO DAILY PRN PRN Reason: Constipation Melatonin (Melatonin 3 Mg Tablet) 6 mg PO BEDTIME PRN PRN Reason: Insomnia Metoprolol Tartrate (Metoprolol Tartrate 25 Mg Tablet) 25 mg PO BID [facility]; Protocol Last Admin: 08/12/24 08:50 Dose: 25 mg Nicotine (Nicotine 14 Mg Patch.Td24) 14 mg TRANSDERMA DAILY [facility] Last Admin: 08/12/24 09:06 Dose: Not Given Ondansetron HCl (Ondansetron Hcl 4 Mg/2 Ml Vial) 4 mg IVPUSH Q6H PRN PRN Reason: Nausea and Vomiting Sodium Chloride (0.9 % Sodium Chloride Flush 3 Ml Syringe) 3 ml IVFLUSH QSHIFT [facility] Last Admin: 08/12/24 08:08 Dose: Not Given Home Medications ?Medication ?Instructions ?Recorded ?Confirmed ?Last Taken ?Type amlodipine 5 mg tablet 5 mg PO DAILY 08/11/24 08/11/24 08/11/24 History aspirin 81 mg chewable tablet 1 tab PO DAILY 08/11/24 08/11/24 08/11/24 History atorvastatin 80 mg tablet 80 mg PO BEDTIME 08/11/24 08/11/24 08/10/24 History metformin 500 mg tablet 500 mg PO DAILY 08/11/24 08/11/24 08/11/24 History metoprolol tartrate 25 mg tablet 25 mg PO BID 08/11/24 08/11/24 08/11/24 History nicotine 14 mg/24 hr daily 1 patch topical DAILY 08/11/24 08/11/24 08/11/24 History transdermal patch Exam Exam Date and Time: 08/12/24 1205 Height,Weight and Vital Signs: Height 4 ft 9 in Weight 73.482 kg Last Vital Signs Temp 97.5 F 08/12/24 10:21 Pulse 73 08/12/24 10:21 Resp 16 08/12/24 10:21 BP 109/55 L 08/12/24 10:21 Pulse Ox 97 08/12/24 10:21 O2 Del Method Room Air 08/12/24 10:21 Pertinent Lab Results Pertinent Lab Results: Laboratory Tests 06/01/2508/11/24 08/11/24 15:20 16:51 20:32 WBC 8.3 7.6 RBC 4.17 L 3.86 L Hgb 12.2 11.5 L Hct 35.3 L 32.4 L MCV 84.7 83.9 MCH 29.3 29.8 MCHC 34.6 35.5 H RDW 11.9 11.9 Plt Count 169 150 L MPV 10.4 10.1 Immature Gran % (Auto) 0.4 0.4 Neut % (Auto) 78.1 H 78.5 H Lymph % (Auto) 12.2 L 11.5 L [place] % (Auto) 9.2 9.3 Eos % (Auto) 0.0 0.0 Baso % (Auto) 0.1 0.3 Lymph # (Auto) 1.0 L 0.9 L [place] # (Auto) 0.8 0.7 Eos # (Auto) 0.0 0.0 Baso # (Auto) 0.0 0.0 Abs Immat Gran (auto) 0.03 0.03 Absolute Neuts (auto) 6.5 6.0 Absolute Nucleated RBC 0.000 0.000 Nucleated RBC % (auto) 0.0 0.0 Hold Purple Top Sodium 133 L Potassium 3.5 Chloride 101 Carbon Dioxide 23 Anion Gap 13 BUN 11 Creatinine 0.86 Estim Creat Clear Calc 59.8 Estimated GFR > 60 POC Glucose Random Glucose 205 H Calcium 9.4 Total Bilirubin 2.4 H AST 39 H ALT 22 Alkaline Phosphatase 137 H Troponin I High Sens < 2.7 Total Protein 7.8 Albumin 4.2 Lipase 23 Urine Color Dark Yellow Urine Appearance Turbid Urine pH 6.0 Ur Specific [place] 1.015 Urine Protein 100 (2+) H Urine Glucose (UA) Negative Urine Ketones Trace Urine Blood Large (3+) H Urine Nitrite Positive H Ur Leukocyte Esterase Large (3+) H Urine RBC 11-20 H Urine WBC >50 H Ur Squamous Epith Cells 6-10 Urine Bacteria 4+ Hyaline Casts 0-2 Influenza Type A (PCR) NEGATIVE Influenza Type B (PCR) NEGATIVE RSV RNA Qual (PCR) NEGATIVE SARS-CoV-2 RNA (RT-PCR) NEGATIVE 08/11/24 08/12/24 08/12/24 20:40 07:20 07:49 WBC RBC Hgb Hct MCV MCH MCHC RDW Plt Count MPV Immature Gran % (Auto) Neut % (Auto) Lymph % (Auto) [place] % (Auto) Eos % (Auto) Baso % (Auto) Lymph # (Auto) [place] # (Auto) Eos # (Auto) Baso # (Auto) Abs Immat Gran (auto) Absolute Neuts (auto) Absolute Nucleated RBC Nucleated RBC % (auto) Hold Purple Top SEE NOTE Sodium 139 Potassium 3.4 Chloride 105 Carbon Dioxide 24 Anion Gap 13 BUN 11 Creatinine 0.64 Estim Creat Clear Calc 80.4 Estimated GFR > 60 POC Glucose 158 H 204 H Random Glucose 192 H Calcium 9.1 Total Bilirubin AST ALT Alkaline Phosphatase Troponin I High Sens Total Protein Albumin Lipase Urine Color Urine Appearance Urine pH Ur Specific [place] Urine Protein Urine Glucose (UA) Urine Ketones Urine Blood Urine Nitrite Ur Leukocyte Esterase Urine RBC Urine WBC Ur Squamous Epith Cells Urine Bacteria Hyaline Casts Influenza Type A (PCR) Influenza Type B (PCR) RSV RNA Qual (PCR) SARS-CoV-2 RNA (RT-PCR) Airway Mallampati Class: II TM Dist: >3cm Neck ROM: Limited Loose/Missing/Broken Teeth: Yes (multiple missing teeth and loose upper left incisor + loose lower right incisor) Heart: S1S2 Lungs: CTAB Assessment and Plan Assessment Anesthesia Assessment: Anesthesia Plan Discussed and Chart Reviewed Final Anesthetic Review Family History of Problems with Anesthesia: No History of Problems with Anesthesia: No NPO: Yes ASA Class: II Final Preanesthetic Review: No Changes in Pt Med Stat, Meds/Allgs Chart Reviewed, Consent Obtained/Reviewed (inside plant supervisor at bedside for translation) and Anes Risks/Benef Reviewed Patient Risk: Low Procedure Risk: Low Anesthetic Plan Anesthetic Plan: GA (vs MAC depending on surgical plans) and Agree w/ Assess. and Plan Disposition: Standard PACU
--- NOTE | 2024-08-12 12:29 | MHC.SHP ---
Pre-Procedural Eval Section A - 24 Hr Update-Section A only Date of Service: 08/12/24 The patient is an INPATIENT: Yes Changes since office visit: No Cold of Flu in the past 2 weeks, No New Medical Problems, No Changes in Medication and No Patient answered all questions The patient has been examined within 24 hours of the surgical procedure. The History & Physical has been completed within 30 days and I have reviewed it.: Yes Section B - Complete if H&P > 30 days Chief Complaint: Obstruction Renal Stone Allergies: Allergies Allergy/AdvReac Type Severity Reaction Status Date / Time No Known Allergies Allergy Verified 08/11/24 14:19 Plan Diagnosis/Plan: Unchanged (cysto, left retrograde, stent placement) I have reviewed the history and physical and performed a pertinent physical examination on my patient. No changes have occurred unless specified. Time Spent With Patient Time: Total time managing care of this patient today ____ minutes.
--- NOTE | 2024-08-12 13:04 | W.PM.OPN ---
Operative Note Operative Note Date of Service: 08/12/24 Narrative: PreOperative Diagnosis: left obstructing UPJ stone Post Operative Diagnosis: above plus uretrhal meatal stenosis Procedure: left retrograde, aspiration, stent placement, meatal dilation Surgeon: Dr Candido Stacy Anesthesia: sedation Indications for procedure: sepsis and obstructing stone Procedure: After informed consent was verified the patient was brought to the operating room and placed in a supine position. Anesthesia was administered per protocol. The patient was placed in modified dorsal lithotomy position and prepped and draped in a sterile fashion. A safety pause time-out was performed. Laterality of procedure and antibiotics were confirmed, appropriate imaging was available Unable to place cystoscope. Meatal stenosis. Dilated with blue dilator. A 22 [place] cystoscope was introduced per urethra. No abnormality was noted of urethra or bladder. Both ureteric orifices were seen in a normal position. The left ureter was cannulated with an open ended catheter and a retrograde examination was performed. filling defect at left UPJ. . A Sensor guidewire was placed under fluoroscopy and a good coil was seen within the renal pelvis. Open ended was advanced. The left renal pelvis was aspirated with purlent fluid to be sent for culture. A 6x 24 double J stent was advanced over the wire and up to the level of the renal pelvis under fluoroscopic and direct visualization. The stent was seen with appropriate coil within the renal pelvis and in the bladder after deployment. 16Fr catheter placed to allow drainage The patient tolerated the procedure well and was transferred in a stable condition to the recovery area. Pathology: urinne culture Drains: stent as above
[2024-08-12] MEDS: HYDROmorphone HCl 0.5 MG/0.5 ML SYRINGE 0.25 MG IVPUSH ×2 (13:13→13:22)
--- NOTE | 2024-08-12 16:19 | P.PNIM_ITS ---
Subjective Subjective Date of Service: 08/12/24 Interval History: uti/left hydronephrosis excuse me Review of Systems Abdominal pain somewhat improving No fever or nausea vomiting. Review of Systems: Yes all other systems are reviewed and are negative Physical Exam 2 Vital Signs: Vital Signs: Last Vital Signs Temp 98.5 F 08/12/24 14:00 Pulse 90 08/12/24 14:00 Resp 16 08/12/24 14:00 BP 117/57 L 08/12/24 14:00 Pulse Ox 96 08/12/24 14:00 O2 Del Method Room Air 08/12/24 14:00 O2 Flow Rate 6 08/12/24 13:22 BMI result Body Mass Index 37.3 Appearance: Alert.? Oriented X3.? cvs: [id number], [id number] . res: clear to auscultation ,no rhonchii or wheezing abd: no rebound or guarding ,nt, bs present. ext pulses present , no cyanosis ,. : No CVA tenderness neuro: axo3 , nonfocal. Objective Data Active Medications Acetaminophen (Acetaminophen 325 Mg Tablet) 650 mg PO Q6H PRN PRN Reason: Pain, Mild 1-3,fever,headache Amlodipine Besylate (Amlodipine Besylate 5 Mg Tablet) 5 mg PO DAILY [facility]; Protocol Last Admin: 08/12/24 08:50 Dose: 5 mg Documented By: CAMERON Aspirin (Aspirin 81 Mg Tab.Chew) 81 mg PO DAILY [facility] Atorvastatin Calcium (Atorvastatin Calcium 80 Mg Tablet) 80 mg PO BEDTIME [facility] Calcium Carbonate (Calcium Carbonate 750 Mg Tab.Chew) 750 mg PO Q4H PRN PRN Reason: Heartburn Ceftriaxone Sodium (Ceftriaxone Sodium 1 Gm Vial) 1 gm IVPUSH Q24H [facility] Last Admin: 08/12/24 08:50 Dose: 1 gm Documented By: CAMERON Dextrose (Dextrose 50 % 25 Gm/50 Ml Syringe) 25 gm IVPUSH Q15M PRN; Protocol PRN Reason: per Hypoglycemia Standing Ord. Glucose (Glucose Gel 15 Gm Gel..Gram.) 15 gm PO Q15M PRN; Protocol PRN Reason: per Hypoglycemia Standing Ord. Haloperidol Lactate (Haloperidol Lactate 5 Mg/Ml Vial) 1 mg IVPUSH ONCE PRN PRN Reason: intractable nausea Stop: 08/12/24 18:07 Hydromorphone HCl (Hydromorphone Hcl 0.5 Mg/0.5 Ml Syringe) 0.5 mg IVPUSH Q3H PRN; Protocol PRN Reason: Pain, Severe (Pain Scale 7-10) Hydromorphone HCl (Hydromorphone Hcl 0.5 Mg/0.5 Ml Syringe) 0.25 mg IVPUSH Q5M PRN PRN Reason: Pain, Moderate to Severe (Pain Scale 4-10) Stop: 08/12/24 18:07 Last Admin: 08/12/24 13:22 Dose: 0.25 mg Documented By: VANESSA Sodium Chloride (Ns) 1,000 mls @ 100 mls/hr IVCONT .Q10H [facility] Insulin Human Lispro (Insulin Lispro 100 Unit/Ml 3 Ml Vial) 0 unit SUBCUT QIDACHS [facility]; Protocol Last Admin: 08/12/24 13:53 Dose: Not Given Documented By: TANNER Non-Admin Reason: Off Unit: Surgery Ketorolac Tromethamine (Ketorolac Tromethamine 15 Mg/Ml Vial) 15 mg IVPUSH Q6H PRN PRN Reason: Pain, Moderate(Pain Scale 4-6) Magnesium Hydroxide (Milk Of Magnesia 30 Ml Oral.Susp) 30 ml PO DAILY PRN PRN Reason: Constipation Melatonin (Melatonin 3 Mg Tablet) 6 mg PO BEDTIME PRN PRN Reason: Insomnia Metoprolol Tartrate (Metoprolol Tartrate 25 Mg Tablet) 25 mg PO BID [facility]; Protocol Last Admin: 08/12/24 08:50 Dose: 25 mg Documented By: CAMERON Naloxone HCl (Naloxone Hcl 0.4 Mg/Ml Vial) 0.04 mg IVPUSH Q5M PRN PRN Reason: Excessive sedation or RR < 8 Nicotine (Nicotine 14 Mg Patch.Td24) 14 mg TRANSDERMA DAILY [facility] Last Admin: 08/12/24 09:06 Dose: Not Given Documented By: CAMERON Non-Admin Reason: See Note Nicotine Polacrilex (Nicotine Polacrilex 2 Mg Gum) 2 mg BUCCAL Q2H PRN PRN Reason: Nicotine Cravings Ondansetron HCl (Ondansetron Hcl 4 Mg/2 Ml Vial) 4 mg IVPUSH Q6H PRN PRN Reason: Nausea and Vomiting Sodium Chloride (0.9 % Sodium Chloride Flush 3 Ml Syringe) 3 ml IVFLUSH QSHIFT [facility] Last Admin: 08/12/24 08:08 Dose: Not Given Documented By: CAMERON Non-Admin Reason: IV Running Labs 08/11/24 20:32 08/12/24 07:49 Labs: Laboratory Results - last 24 hr 08/11/24 08/11/24 08/11/24 16:51 20:32 20:40 MCV 83.9 MCH 29.8 MCHC 35.5 H RDW 11.9 Plt Count 150 L MPV 10.1 Immature Gran % (Auto) 0.4 Neut % (Auto) 78.5 H Lymph % (Auto) 11.5 L Mer[place] % (Auto) 9.3 Eos % (Auto) 0.0 Baso % (Auto) 0.3 Lymph # (Auto) 0.9 L [place] # (Auto) 0.7 Eos # (Auto) 0.0 Baso # (Auto) 0.0 Abs Immat Gran (auto) 0.03 Absolute Neuts (auto) 6.0 Absolute Nucleated RBC 0.000 Nucleated RBC % (auto) 0.0 Hold Purple Top Anion Gap Estim Creat Clear Calc Estimated GFR POC Glucose 158 H Random Glucose Calcium Urine Color Dark Yellow Urine Appearance Turbid Urine pH 6.0 Ur Specific [place] 1.015 Urine Protein 100 (2+) H Urine Glucose (UA) Negative Urine Ketones Trace Urine Blood Large (3+) H Urine Nitrite Positive H Ur Leukocyte Esterase Large (3+) H Urine RBC 11-20 H Urine WBC >50 H Ur Squamous Epith Cells 6-10 Urine Bacteria 4+ Hyaline Casts 0-2 Influenza Type A (PCR) NEGATIVE Influenza Type B (PCR) NEGATIVE RSV RNA Qual (PCR) NEGATIVE SARS-CoV-2 RNA (RT-PCR) NEGATIVE 08/12/24 08/12/24 07:20 07:49 MCV MCH MCHC RDW Plt Count MPV Immature Gran % (Auto) Neut % (Auto) Lymph % (Auto) Mer[place] % (Auto) Eos % (Auto) Baso % (Auto) Lymph # (Auto) [place] # (Auto) Eos # (Auto) Baso # (Auto) Abs Immat Gran (auto) Absolute Neuts (auto) Absolute Nucleated RBC Nucleated RBC % (auto) Hold Purple Top SEE NOTE Anion Gap 13 Estim Creat Clear Calc 80.4 Estimated GFR > 60 POC Glucose 204 H Random Glucose 192 H Calcium 9.1 Urine Color Urine Appearance Urine pH Ur Specific [place] Urine Protein Urine Glucose (UA) Urine Ketones Urine Blood Urine Nitrite Ur Leukocyte Esterase Urine RBC Urine WBC Ur Squamous Epith Cells Urine Bacteria Hyaline Casts Influenza Type A (PCR) Influenza Type B (PCR) RSV RNA Qual (PCR) SARS-CoV-2 RNA (RT-PCR) Microbiology Microbiology Results: Microbiology 08/11/24 19:41 Urine Culture - Preliminary Urine clean catch - Clean Catch Midstream Gram negative shari Assessment and Plan (1) Hydronephrosis with urinary obstruction due to ureteral calculus: Status: Acute (2) UTI (urinary tract infection): Status: Acute Assessment and Plan: 58 years old woman admitted with: Left hydronephrosis secondary to obstructive renal calculi (1.5 cm) associated with UTI. Admit to hospitalist service. NPO after midnight. Continue IV fluids. Pain control with Dilaudid and Zofran IV as needed. Continue empiric IV antibiotic therapy with ceftriaxone. Urology consult. Urine and blood culture obtained -will follow results. Type 2 diabetes mellitus. Metformin on hold (received IV contrast). Insulin sliding scale while NPO. Recent CVA. Continue aspirin and statin. Essential hypertension. Continue amlodipine and metoprolol. Hyperlipidemia. Continue atorvastatin. Ongoing need of stay: UTI with left hydronephrosis-need IV fluid, IV pain medication and antibiotics as well as urological procedure for possible stent placement. Quality Stroke Does the patient have a stroke diagnosis?: No VTE Prior VTE?: No VTE Risk Level:: Medical - moderate - high VTE Device Contraindication: N/A - Device Ordered VTE Drug Contraindication: Treatment Not Indicated
[2024-08-12 16:24] LABS: Glucose, Whole Blood 276 mg/dL (60-115)
[2024-08-12] MEDS: Insulin Lispro 100 UNIT/ML 3 ML VIAL SUBCUT (16:30)
[2024-08-12] MEDS: 0.9 % Sodium Chloride 1,000 ML 100 ML IVCONT (16:30)
[2024-08-12] MEDS: Nicotine Polacrilex 2 MG GUM BUCCAL (16:31)
[2024-08-12] MEDS: 0.9 % Sodium Chloride Flush 3 ML SYRINGE IVFLUSH (16:33)
[2024-08-12 21:01] LABS: Glucose, Whole Blood 143 mg/dL (60-115)
[2024-08-12] MEDS: Atorvastatin Calcium 80 MG TABLET PO (21:38)
[2024-08-13] MEDS: 0.9 % Sodium Chloride 1,000 ML 100 ML IVCONT ×2 (02:56→13:23)
[2024-08-13 03:46] VITALS: BP 119/60; PULSE 80; RESP 18; TEMP 36.8; O2SAT 93
[2024-08-13 08:00] VITALS: BP 123/56; PULSE 77; RESP 16; TEMP 36.6; O2SAT 98
[2024-08-13 08:16] LABS: Glucose, Whole Blood 178 mg/dL (60-115)
[2024-08-13] MEDS: Metoprolol Tartrate 25 MG TABLET PO ×2 (08:26→22:15)
[2024-08-13] MEDS: Aspirin 81 MG TAB.CHEW PO (08:26)
[2024-08-13] MEDS: amLODIPine Besylate 5 MG TABLET PO (08:26)
[2024-08-13] MEDS: cefTRIAXone sodium 1 GM VIAL IVPUSH (08:26)
[2024-08-13] MEDS: Insulin Lispro 100 UNIT/ML 3 ML VIAL SUBCUT (08:27)
[2024-08-13] MEDS: 0.9 % Sodium Chloride Flush 3 ML SYRINGE IVFLUSH ×2 (08:27→22:15)
--- NOTE | 2024-08-13 08:27 | HO.POSTANES ---
Post Anesthesia Evaluation Post Anesthesia Evaluation Date of Service: 08/13/24 Vital Signs: Vital Signs Temp Pulse Resp BP Pulse Ox O2 Del Method 08/13/24 08:00 97.9 F 77 16 123/56 L 98 08/13/24 03:46 98.2 F 80 18 119/60 93 Room Air 08/12/24 23:46 98.5 F 80 20 116/58 L 94 Room Air 08/12/24 21:37 89 123/62 Anesthesia: General Mental Status: Awake Pain Control: Satisfactory Nausea/Vomiting: None Hydration: Adequate Anesthesia-Related Issues: No Anes. Related Issues
--- NOTE | 2024-08-13 09:06 | MHC.CM.PN ---
CM MET WITH PT/SON AT BEDSIDE, PT SPEAKS [employer] AND REQUIRES AN BUNDLE SORTER. PT LIVES WITH ADULT CHILDREN, USES [facility] FOR MOBILITY AND NO SERVICES CURRENTLY. + HCP PT HAS NO PCP HAS RECENTLY RELOCATED HERE. [facility] PROVIDED. DP: HOME, NO SERVICES. PT/SON ENCOURAGED TO MAKE A NEW PCP APPOINTMENT [facility]. PT'S DAUGHTER WILL TRANSPORT HOME. CM WILL CONTINUE TO FOLLOW FOR ANY CHANGE TO DC PLAN/NEEDS
[2024-08-13 12:00] VITALS: BP 111/60; PULSE 75; RESP 16; TEMP 36.7; O2SAT 97
[2024-08-13 12:01] LABS: Glucose, Whole Blood 146 mg/dL (60-115)
--- NOTE | 2024-08-13 14:20 | HO.PM.IMPN ---
Subjective Subjective Date of Service: 08/13/24 Interval History: uti/left hydronephrosis Review of Systems Abdominal pain somewhat improving No fever or nausea vomiting. Review of Systems: Yes all other systems are reviewed and are negative Physical Exam Vital Signs: Vital Signs: Last Vital Signs Temp 98.1 F 08/13/24 12:00 Pulse 75 08/13/24 12:00 Resp 16 08/13/24 12:00 BP 111/60 08/13/24 12:00 Pulse Ox 97 08/13/24 12:00 O2 Del Method Room Air 08/13/24 12:00 O2 Flow Rate 6 08/12/24 13:22 BMI result Body Mass Index 37.3 Appearance: Alert.? Oriented X3.? cvs: [id number], [id number] . res: clear to auscultation ,no rhonchii or wheezing abd: no rebound or guarding ,nt, bs present. ext pulses present , no cyanosis ,. : No CVA tenderness neuro: axo3 , nonfocal. Objective Data Active Medications Acetaminophen (Acetaminophen 325 Mg Tablet) 650 mg PO Q6H PRN PRN Reason: Pain, Mild 1-3,fever,headache Amlodipine Besylate (Amlodipine Besylate 5 Mg Tablet) 5 mg PO DAILY [facility]; Protocol Last Admin: 08/13/24 08:26 Dose: 5 mg Documented By: RODOLFO Aspirin (Aspirin 81 Mg Tab.Chew) 81 mg PO DAILY [facility] Last Admin: 08/13/24 08:26 Dose: 81 mg Documented By: RODOLFO Atorvastatin Calcium (Atorvastatin Calcium 80 Mg Tablet) 80 mg PO BEDTIME [facility] Last Admin: 08/12/24 21:38 Dose: 80 mg Documented By: BRIAN Calcium Carbonate (Calcium Carbonate 750 Mg Tab.Chew) 750 mg PO Q4H PRN PRN Reason: Heartburn Ceftriaxone Sodium (Ceftriaxone Sodium 1 Gm Vial) 1 gm IVPUSH Q24H [facility] Last Admin: 08/13/24 08:26 Dose: 1 gm Documented By: RODOLFO Dextrose (Dextrose 50 % 25 Gm/50 Ml Syringe) 25 gm IVPUSH Q15M PRN; Protocol PRN Reason: per Hypoglycemia Standing Ord. Glucose (Glucose Gel 15 Gm Gel..Gram.) 15 gm PO Q15M PRN; Protocol PRN Reason: per Hypoglycemia Standing Ord. Hydromorphone HCl (Hydromorphone Hcl 0.5 Mg/0.5 Ml Syringe) 0.5 mg IVPUSH Q3H PRN; Protocol PRN Reason: Pain, Severe (Pain Scale 7-10) Sodium Chloride (Ns) 1,000 mls @ 100 mls/hr IVCONT .Q10H [facility] Last Admin: 08/13/24 13:23 Dose: 100 mls/hr Documented By: RODOLFO Insulin Human Lispro (Insulin Lispro 100 Unit/Ml 3 Ml Vial) 0 unit SUBCUT QIDACHS [facility]; Protocol Last Admin: 08/13/24 12:09 Dose: Not Given Documented By: RODOLFO Non-Admin Reason: No Insulin Coverage Ketorolac Tromethamine (Ketorolac Tromethamine 15 Mg/Ml Vial) 15 mg IVPUSH Q6H PRN PRN Reason: Pain, Moderate(Pain Scale 4-6) Magnesium Hydroxide (Milk Of Magnesia 30 Ml Oral.Susp) 30 ml PO DAILY PRN PRN Reason: Constipation Melatonin (Melatonin 3 Mg Tablet) 6 mg PO BEDTIME PRN PRN Reason: Insomnia Metoprolol Tartrate (Metoprolol Tartrate 25 Mg Tablet) 25 mg PO BID [facility]; Protocol Last Admin: 08/13/24 08:26 Dose: 25 mg Documented By: RODOLFO Naloxone HCl (Naloxone Hcl 0.4 Mg/Ml Vial) 0.04 mg IVPUSH Q5M PRN PRN Reason: Excessive sedation or RR < 8 Nicotine (Nicotine 14 Mg Patch.Td24) 14 mg TRANSDERMA DAILY [facility] Last Admin: 08/13/24 08:33 Dose: Not Given Documented By: RODOLFO Non-Admin Reason: Patient Refused Nicotine Polacrilex (Nicotine Polacrilex 2 Mg Gum) 2 mg BUCCAL Q2H PRN PRN Reason: Nicotine Cravings Last Admin: 08/12/24 16:31 Dose: 2 mg Documented By: TANNER Ondansetron HCl (Ondansetron Hcl 4 Mg/2 Ml Vial) 4 mg IVPUSH Q6H PRN PRN Reason: Nausea and Vomiting Sodium Chloride (0.9 % Sodium Chloride Flush 3 Ml Syringe) [facility] Last Admin: 08/13/24 08:27 Dose: 3 ml Documented By: RODOLFO Labs 08/11/24 20:32 08/12/24 07:49 Labs: Laboratory Results - last 24 hr 08/12/24 08/12/24 08/13/24 16:11 20:57 08:11 POC Glucose 276 H 143 H 178 H 08/13/24 11:49 POC Glucose 146 H Microbiology Microbiology Results: Microbiology 08/12/24 12:58 Urine Culture - Final Urine Other - Kidney Left 08/11/24 19:41 Urine Culture - Final Urine clean catch - Clean Catch Midstream Escherichia coli Assessment and Plan (1) Hydronephrosis with urinary obstruction due to ureteral calculus: Status: Acute (2) UTI (urinary tract infection): Status: Acute Assessment and Plan: 58 years old woman admitted with: Left hydronephrosis secondary to obstructive renal calculi (1.5 cm) associated with UTI. Admit to hospitalist service. NPO after midnight. Continue IV fluids. Pain control with Dilaudid and Zofran IV as needed. Continue empiric IV antibiotic therapy with ceftriaxone. Urology consult. Urine and blood culture obtained -will follow results. Type 2 diabetes mellitus. Metformin on hold (received IV contrast). Insulin sliding scale while NPO. Recent CVA. Continue aspirin and statin. Essential hypertension. Continue amlodipine and metoprolol. Hyperlipidemia. Continue atorvastatin. Ongoing need of stay: UTI with left hydronephrosis-need IV fluid, IV pain medication and antibiotics -urine culture/sent by urology pending. Quality Stroke Does the patient have a stroke diagnosis?: No VTE Prior VTE?: No VTE Risk Level:: Medical - moderate - high VTE Device Contraindication: N/A - Device Ordered VTE Drug Contraindication: Treatment Not Indicated
[2024-08-13 16:00] VITALS: BP 134/70; PULSE 80; RESP 16; TEMP 36.6; O2SAT 97
[2024-08-13 16:32] LABS: Glucose, Whole Blood 140 mg/dL (60-115)
[2024-08-13 19:22] VITALS: BP 126/60; PULSE 72; RESP 15; TEMP 36.4; O2SAT 98
[2024-08-13 20:35] LABS: Glucose, Whole Blood 138 mg/dL (60-115)
[2024-08-13] MEDS: Atorvastatin Calcium 80 MG TABLET PO (22:15)
[2024-08-14] VITALS: BP 124/59; PULSE 73; RESP 16; TEMP 36.6; O2SAT 96
--- NOTE | 2024-08-14 01:27 | PC.NURSE ---
Addendum entered by Lainey Mckeon RN 08/14/24 05:05: FC removed at 5 AM. First DTV is at 11 AM. Original Note: See communication order per Dr Stacy. FC to be removed Friday. No other orders for Maribell.
[2024-08-14 03:33] VITALS: BP 117/57; PULSE 67; RESP 16; TEMP 36.8; O2SAT 94
[2024-08-14 07:18] VITALS: BP 121/59; PULSE 70; RESP 16; TEMP 36; O2SAT 97
[2024-08-14 07:48] LABS: Glucose, Whole Blood 136 mg/dL (60-115)
[2024-08-14] MEDS: cefTRIAXone sodium 1 GM VIAL IVPUSH (09:26)
[2024-08-14] MEDS: Nicotine 14 MG PATCH.TD24 TRANSDERMA (09:26)
[2024-08-14] MEDS: 0.9 % Sodium Chloride Flush 3 ML SYRINGE IVFLUSH (09:27)
[2024-08-14] MEDS: Metoprolol Tartrate 25 MG TABLET PO (09:27)
[2024-08-14] MEDS: amLODIPine Besylate 5 MG TABLET PO (09:28)
[2024-08-14] MEDS: Aspirin 81 MG TAB.CHEW PO (09:28)
--- NOTE | 2024-08-14 10:11 | PC.NURSE ---
Pts daughter Pavel updated that pt will be discharged today
[2024-08-14] MEDS: cefuroxime axetiL 500 MG TABLET PO (10:36)
[2024-08-14 11:23] LABS: Glucose, Whole Blood 197 mg/dL (60-115)
[2024-08-14 11:28] VITALS: BP 100/54; PULSE 67; RESP 16; TEMP 36.9; O2SAT 97
[2024-08-14] MEDS: Insulin Lispro 100 UNIT/ML 3 ML VIAL SUBCUT (12:19)
--- NOTE | 2024-08-14 13:00 | PM.DS ---
DS: Providers Provider Date of Service: 08/14/24 Date of admission: 08/11/24 18:56 Date of discharge: 08/14/24 Primary care physician: None Physician Consults: 08/11/24 20:19 Consult to Urology Routine Consulting Provider: [facility] Reason for consultation: Left hydronephrosis, ?Infected stone, UTI Has provider been notified: Yes Attending physician on discharge: Eliana Ann Discharging clinician: Eliana Ann DS: Diagnosis Discharge Diagnosis (1) Hydronephrosis with urinary obstruction due to ureteral calculus: Status: Acute (2) UTI (urinary tract infection): Status: Acute DS: Summary Hospital Course Hospital Course: HPI:58 years old woman with past medical history significant for recent CVA, essential hypertension, hyperlipidemia and type 2 diabetes mellitus on metformin presents to the emergency department complaining of 3 days' history of left lower quadrant pain associated with mild pain with urination, nausea, fever, chills, vomiting, loose stools and headache. Denied bloody urine. She described pain as sharp radiating to the genitals; intensity 10/10 (but now 0/10). She had a similar episode in the past but never have had urinary interventions. She did not report chest pain or shortness on breath. He is a tobacco and marijuana smoker. She denied alcohol abuse or illicit drug use. She denied any abdominal surgeries. In the ED, she was found to have stable vital signs. Blood workup showed no leukocytosis. Hemoglobin is 11.5 and platelets 150. There are no significant electrolyte imbalances. Renal function is normal. Glucose is 205. LFTs: Bilirubin 2.4, AST 39, ALT 22 and alk-phos 137. Troponin and lipase are normal. Abdomen pelvis CT scan showed renal calculi that measure 1.5 cm in the left proximal ureter causing moderate hydronephrosis, and finding likely consistent with ureteritis and cystitis. It was noted that her endometrium was thickened and non Urgent pelvic ultrasound was recommended. Hospital course: 58 years old woman admitted with: Left hydronephrosis secondary to obstructive renal calculi (1.5 cm) associated with UTI-admitted for that,started IV fluids,Pain control with Dilaudid and Zofran IV as needed. Continue empiric IV antibiotic therapy with ceftriaxone. Urology consult. Urine cultures sent -also seen by urologist s/p left retrograde, aspiration, stent placement, meatal dilation(for meatal stenosis),urine culture grew ecoli -senstive to ceftriaxone, renal urine culture <[id number]/ml,patient was switched to p.o. Ceftin upon discharge. Patient says no pain, no urinary complaints. Feels much better and wants to go home. mild thrombocytopenia: Monitor CBC outpatient. Also found to have mild elevated LFTs: abd ultrasound -sThe common bile duct is normal in diameter, measuring 0.3 cm.No cholelithiasis. No wall thickening or pericholecystic fluid. monitor LFT outpatient and further workup outpatient, patient currently denies any GI symptoms. ct abd incidental findings:her endometrium was thickened and non Urgent pelvic ultrasound was recommended. plan: Ceftin 500 mg p.o. b.i.d. for 7 days. Follow-up with Urology outpatient. moniter cbc ,Lft's outpatient -further workup outpatient. Above management discussed with the patient in detail length she understand and in agreement with the above plan, time spent 40 minutes and 50% time spent on counseling.all question answered , staff was present during conversation. Time Attestation Total time managing care of this patient today: 40 mintues. Discharge Coordination Time (in mins): 40min Quality: Safe Use of Opioids Does Pt have an Active Cancer Diagnosis on the Problem List?: No Quality: Stroke Does the patient have a stroke diagnosis?: No Physical Exam Vital Signs: Vital Signs: Last Vital Signs Temp 98.4 F 08/14/24 11:28 Pulse 67 08/14/24 11:28 Resp 16 08/14/24 11:28 BP 100/54 L 08/14/24 11:28 Pulse Ox 97 08/14/24 11:28 O2 Del Method Room Air 08/14/24 11:28 O2 Flow Rate 6 08/12/24 13:22 BMI result Body Mass Index 37.3 Appearance: Alert.? Oriented X3.? cvs: rrr, [id number] , no murmur res: clear to auscultation ,no rhonchii or wheezing abd: no rebound or guarding ,nt, bs present. ext pulses present , no cyanosis . neuro: axo3 , nonfocal. DS: Data Data Completed and Pending Labs on day of discharge: Laboratory Results - last 24 hr 08/13/24 08/13/24 08/13/24 16:23 18:17 20:14 Hgb 12.0 Hct 35.0 L POC Glucose 140 H 138 H 08/14/24 08/14/24 07:21 11:09 Hgb Hct POC Glucose 136 H 197 H Imaging Chest x-ray: Radiologist's impression: ITS Impressions Head CT 08/11/24 14:07 IMPRESSION: No acute intracranial hemorrhage. Probable prior vascular insult posterior limb, left internal capsule. Retention cysts versus polyp, right sphenoid ethmoid recess. ct abd: 1.5 cm stone in the left proximal ureter causing moderate hydronephrosis. Mucosal hyperenhancement of the left ureter may indicate ureteritis. Question mild wall thickening of the bladder. Correlate with urinalysis to exclude cystitis. Thickened endometrium. Nonemergent pelvic ultrasound and referral to gynecology is recommended. Guidance Fluoroscopy 08/12/24 11:54 IMPRESSION: Fluoroscopy during procedure. Please see procedure report for additional information. us abd: Findings: The common bile duct is normal in diameter, measuring 0.3 cm. No cholelithiasis. No wall thickening or pericholecystic fluid. Negative sonographic Issa sign. Impression: Negative for acute cholecystitis. Discharge Plan Discharge Anticipated Discharge Date/Time: 08/14/24 12:54 Patient Disposition: Home, Self-Care Discharge Diagnosis: uti, nephrolithasis Referrals: Physician,None [Primary Care Provider] - 1 Week Discharge Medications: New cefuroxime axetil 500 mg Tablet 500 mg PO Q12H Qty: 14 0RF Continued metformin 500 mg tablet 500 mg PO DAILY atorvastatin 80 mg tablet 80 mg PO BEDTIME nicotine 14 mg/24 hr patch 24 hour 1 patch topical DAILY amlodipine 5 mg tablet 5 mg PO DAILY aspirin 81 mg tablet,chewable 1 tab PO DAILY metoprolol tartrate 25 mg tablet 25 mg PO BID Discharge Orders: Discharge Order (Routine); Ordered 08/14/24 Ordered By: Eliana Ann Diet: Advance to usual diet Activity on Discharge: As tolerated Stand Alone Forms: Patient Portal Discharge page, Work/School Release Print Language: Greenlandic Care Plan Goals: Left hydronephrosis secondary to obstructive renal calculi (1.5 cm) associated with UTI-manage with hydration, antibiotics, also seen by urologist s/p left retrograde, aspiration, stent placement, meatal dilation(for meatal stenosis),urine culture grew ecoli -senstive to ceftriaxone, patient was switched to p.o. Ceftin upon discharge. Patient says no pain, no urinary complaints. Feels much better and wants to go home. Health Concerns: As above. Plan of Treatment: Ceftin 500 mg p.o. b.i.d. for 7 days.Follow-up with Urology outpatient mild thrombocytopenia: Monitor CBC outpatient. Also found to have mild elevated LFTs: Liver ultrasound normal, monitor LFT outpatient and further workup outpatient, patient currently denies any GI symptoms. ct abd incidental findings:her endometrium was thickened and non Urgent pelvic ultrasound was recommended. Assessment: As above. Patient Instructions: Urinary Tract Infection in Women (DC), Hydronephrosis (DC), Ureteral Stones (DC)
--- NOTE | 2024-08-14 13:12 | MHC.CM.PN ---
PT TO DC HOME TODAY VIA FAMILY TRANSPORT
[2024-08-14 13:47] LABS: Alanine Aminotransferase 35 U/L (0-31); Albumin Level 3.7 g/dL (3.5-5.0); Alkaline Phosphatase 136 U/L (39-117); Aspartate Amino Transferase 46 U/L (5-31); Bilirubin Direct 0.6 mg/dL (0.0-0.5); Total Protein 7.6 g/dL (6.5-8.0)
[2024-08-14 15:24] VITALS: BP 124/65; PULSE 74; RESP 16; TEMP 36; O2SAT 98
== END 2024-08-14 15:48 | disposition home or self-care (01) | DRG 443 ==
LOC: HO.ED 18:57 → HO.EDOVER 19:43 → HO.S3 08-12 09:13
PROVIDERS: Physician Assistant; Registered Nurse Emergency; Urology; Admitting Provider Internal Medicine; Emergency Provider Emergency Medicine Emergency Medical Services; Visit Provider Internal Medicine
PROC: 0T9 Urinary System, Drainage (ICD-10-PCS; principal; 2024-08-12 12:00)
DX: N13.6 Pyonephrosis (principal); E11.9 Type 2 diabetes mellitus without complications; I10 Essential (primary) hypertension; E78.5 Hyperlipidemia, unspecified; Z20.822 Contact with and (suspected) exposure to COVID-19; Z86.73 Personal history of transient ischemic attack (TIA), and cerebral infarction without residual deficits; Z79.82 Long term (current) use of aspirin; Z79.84 Long term (current) use of oral hypoglycemic drugs; Z79.899 Other long term (current) drug therapy
CPT/HCPCS: 0241U; 36415; 70450; 74177; 76705; 80048; 80053; 80076; 81001; 81003; 82947; 83690; 84484; 85014; 85018; 85025; 87086; 87088; 87186; 93005; 99285; C1758; C1769; C2617; J0696; J1171; J2003; J2250; J2704; J3010; J7120; Q9967

== ENCOUNTER → 2024-08-11 14:59 | Outpatient (BNV) | payer OTHER, SELFPAY | PROVIDERS: Emergency Provider Emergency Medicine Emergency Medical Services; Visit Provider Internal Medicine Cardiovascular Disease | DX: R00.0 Tachycardia, unspecified (principal) | CPT/HCPCS: 93010 ==

== ENCOUNTER → 2024-08-11 14:59 | Outpatient (BNV) | payer OTHER, SELFPAY | PROVIDERS: Emergency Provider Emergency Medicine Emergency Medical Services; Visit Provider Radiology Diagnostic Radiology | DX: N13.2 Hydronephrosis with renal and ureteral calculous obstruction (principal); R51.9 Headache, unspecified; R10.811 Right upper quadrant abdominal tenderness; R93.89 Abnormal findings on diagnostic imaging of other specified body structures; R11.2 Nausea with vomiting, unspecified | CPT/HCPCS: 70450; 74177; 76705 ==

== ENCOUNTER → 2024-08-11 18:56 | Outpatient (BNV) | payer OTHER, SELFPAY | PROVIDERS: Admitting Provider Internal Medicine; Emergency Provider Emergency Medicine Emergency Medical Services; Visit Provider Internal Medicine | DX: N13.2 Hydronephrosis with renal and ureteral calculous obstruction (principal); N30.00 Acute cystitis without hematuria | CPT/HCPCS: 99231; 99232 ==

== ENCOUNTER → 2024-08-11 18:56 | Outpatient (BNV) | payer OTHER, SELFPAY | PROVIDERS: Admitting Provider Internal Medicine; Emergency Provider Emergency Medicine Emergency Medical Services; Visit Provider Urology | DX: N13.2 Hydronephrosis with renal and ureteral calculous obstruction (principal); N39.0 Urinary tract infection, site not specified | CPT/HCPCS: 99222 ==

== ENCOUNTER 2024-09-14 07:52 | Outpatient (AMB) | payer MEDICAID, SELFPAY ==
--- OUTSIDE RECORDS SUMMARY | 2024-09-14 07:54 | XMS_ITS | Clinical Summary ---
Author Organization [address] [facility] Address [address] [place] [address] Phone Care Team Providers Care Cabinet And Trim Installer Name Role Phone Mirna Stringer MD Primary Care Provider [phone] Social History Tobacco Use Types Packs/Day Years Used Date Smoking Tobacco: Never Assessed Comments Unknown Sex and Gender Information Value Date Recorded Sex Assigned at Not on file Legal Sex Female 7:28 AM EDT Gender Identity Not on file Sexual Orientation Not on file Plan of Treatment Upcoming Encounters Date Type Department Care Team ([facility] Contact Info) Description 10/13/2024 9:00 AM EDT Consult Orthopedic Surgery - [place] [address] [id number] Chip Cerda, DPM [address] [id number] Health Maintenance Due Date Last Done Comments [...] Influencers of Health Screening 07/21/2024 Influenza Vaccine (#1) 2024 HIB Vaccines Aged Out No longer [...] patient's age to complete this topic Insurance [facility] Care Teams Cabinet And Trim Installer Relationship Specialty Start Date End Date Mirna Stringer MD [address] [place] [address] PCP - General Internal Medicine 07/21/24
--- NOTE | 2024-09-14 07:56 | A.OFFVIS_ITS ---
Intake Visit Reasons: Obstructing left renal stone/ Discuss Surgery Intake Note: patient presents to a telehealth for Allergies No Known Allergies Allergy (Verified 08/11/24 14:19) HPI Comments Details: Juli is a pleasant Wolof-speaking female. She is a patient of Dr. Stringer. She is seen for the following urologic conditions - nephrolithiasis Telemedicine Evaluation 15 min Consultation [employer] Octavio Video Initial presentation to hospital with pyelonephritis and significant left stone burden Ureteric stent placed Known stone former Recommendation for intervention on left side [facility] Medical History (Updated 08/22/24 @ 00:01 by Background Dakimberly) Hyperlipidemia Obesity CVA (cerebral vascular accident) Essential hypertension Type 2 diabetes mellitus Social History Household Members: Children Housing: House Do you presently have visiting nurse or other home services: No Patient Tobacco Use Status: Never used Tobacco Tobacco use type: Cigarette Second Hand Smoke Exposure: No service: No Review of Systems Const All systems reviewed & are unremarkable except as noted in HPI and below Reports no additional complaints Resp Reports no additional complaints GI Reports no additional complaints Reports as per HPI Musc Reports no additional complaints Physical Exam Telemedicine evaluation Appropriate responses Regular breathing rate and rhythm HEENT Head: Yes normal to inspection Ears: hearing grossly normal bilaterally Eyes General: appearance normal, both eyes and all related structures Neck Neck: Yes normal visual inspection Chest Chest palpation & inspection: normal inspection of the chest Resp Effort & Inspection: normal respiratory effort and able to speak in complete sentences Telehealth Telehealth Location of provider rendering services: practice address Location of patient: address on file Patient Identification confirmed using: Name, : Yes Telehealth method: voice only Patient verbally consented to treatment: Yes Patient verbally consented to billing insurance company: Yes Patient informed of any privacy concerns related to visit: Yes Assessment & Plan Assessment & Plan (1) Hydronephrosis with urinary obstruction due to ureteral calculus: Code(s): N13.2 - Hydronephrosis with renal and ureteral calculous obstruction Category: Medical (2) UTI (urinary tract infection): Code(s): N39.0 - Urinary tract infection, site not specified Category: Medical Qualifiers: Hematuria presence: without hematuria Urinary tract infection type: acute cystitis Qualified Code(s): N30.00 - Acute cystitis without hematuria Plan Ureteroscopy We discussed the nature of the decision and reasonable alternatives for performing ureteroscopy. Options such as medical therapy were discussed. Interventions include chemical dissolution, ESWL, ureteroscopy with laser lithotripsy and stent placement, PCNL. The relative uncertainties and benefits related to each alternate procedure were adequately discussed. General surgical risks including, but not limited to - pain, bleeding, infection, myocardial infarction, pulmonary embolus, deep vein thrombosis and cerebrovascular accident which may result in further hospitalization were discussed. Full disclosure of the procedure as well as all major risks, benefits and complications were discussed including but not limited to damage to the urethra, bladder and kidney infection, damage to the ureter, stent migration or malposition, scarring to the renal pelvis, remnant stone fragments, subsequent stone passage with need for secondary procedures. The overall secondary procedure rate is approximately 10-15%. The overall clearance rate is approximately 90-95%. Success of the procedure in the short-term does not necessarily guarantee that long-term success will be maintained. Suitable follow up will need to be maintained. The patient showed understanding of discussion and wishes to proceed with - cystoscopy, retrograde, ureteroscopy, possible lithotripsy/stone basketing and stent on the left side Patient Instructions: This note is constructed using voice recognition software. While every effort has been made to ensure accuracy network cable installer errors may have been included. Imaging studies, laboratory and physical exam results were discussed and reviewed in detail. No major barriers to patient understanding were identified. An opportunity to ask questions regarding the treatment plan was provided. All questions were answered. The patient expressed understanding and agreement with the above treatment plan. The patient is aware they should contact our office by phone for worsening of their current condition or the appearance of new urologic symptoms. Compliance is encouraged with any medications and followup testing that is ordered. It is a privilege to participate in the urologic care of your patient. If you have any questions or concerns regarding treatment for the above conditions, or other urologic issues, please do not hesitate to contact me. The office telephone contact is [phone]. Sincerely, Dr Candido Stacy MD, [facility] - Urology Compassionate Specialist Care for the Genitourinary System Coding Level of Care Code Tele Est Pt Level 4 (06805) Diagnoses Hydronephrosis with urinary obstruction due to ureteral calculus N13.2 Acute cystitis without hematuria N30.00 Hematuria presence: without hematuria Urinary tract infection type: acute cystitis
== END 2024-09-14 09:08 | disposition home or self-care (01) ==
LOC: HO.HUSH 07:52
PROVIDERS: PCP Internal Medicine; Visit Provider Urology
DX: N13.2 Hydronephrosis with renal and ureteral calculous obstruction (principal); N30.00 Acute cystitis without hematuria
CPT/HCPCS: 99214

== ENCOUNTER 2024-10-25 10:24 | Day surgery (SDC) | payer MEDICAID, SELFPAY ==
--- OUTSIDE RECORDS SUMMARY | 2024-09-15 12:43 | XMS_ITS | Clinical Summary ---
Author Organization 175 [facility] Address [address] [place] [address] Phone Care Team Providers Care Commercial Lines Underwriter Name Role Phone Mirna Stringer MD Primary Care Provider [phone]- [phone] Social History Tobacco Use Types Packs/Day Years Used Date Smoking Tobacco: Never Assessed Comments Unknown Sex and Gender Information Value Date Recorded Sex Assigned at Not on file Legal Sex Female 7:28 AM EDT Gender Identity Not on file Sexual Orientation Not on file Plan of Treatment Upcoming Encounters Date Type Department Care Team ([facility] Contact Info) Description 10/13/2024 9:00 AM EDT Consult Orthopedic Surgery - [place] [address] [phone] Chip Cerda, DPM [address] [id number] Health Maintenance Due Date Last Done Comments [...] patient's age to complete this topic Insurance [facility] Care Teams Commercial Lines Underwriter Relationship Specialty Start Date End Date Mirna Stringer MD [address] [place] [address] PCP - General Internal Medicine 07/21/24
[2024-10-25] VITALS (8 sets, daily range): BP systolic 110–180; BP diastolic 63–82; PULSE 69–89; RESP 14–20; TEMP 36.2–36.6; O2SAT 96–99; BMI 26.2
--- NOTE | ~2024-10-25 | FL_ITS ---
EXAMINATION: FL GUIDANCE ONLY HISTORY: STONE LEFT COMPARISON: Correlation is made with the CT of the abdomen and pelvis dated 08/11/2024 and fluoroscopic images dated 08/12/2024. TECHNIQUE: Fluoroscopy time: 40.5 seconds. Cumulative Dose: 4.4777 mGy. DAP: 1.9477 mGym2 Images: 4. FINDINGS: Fluoroscopic spot films of the left upper quadrant demonstrate exchange of the previously noted nephroureteral stent. Multiple filling defects are noted in a lower pole calyx consistent with calculi, as noted on CT. FL/FL guidance in OR IMPRESSION: Fluoroscopy during procedure. Please see procedure report for additional information. Electronically signed by: Jeffery Reaves MD 10/25/2024 03:25 PM EDT
--- NOTE | 2024-10-25 10:43 | MHC.SHP ---
Pre-Procedural Eval Section A - 24 Hr Update-Section A only Date of Service: 10/25/24 The patient is an INPATIENT: No Changes since office visit: No Cold of Flu in the past 2 weeks, No New Medical Problems, No Changes in Medication and No Patient answered all questions The patient has been examined within 24 hours of the surgical procedure. The History & Physical has been completed within 30 days and I have reviewed it.: Yes Section B - Complete if H&P > 30 days Chief Complaint: Hydronephrosis with renal and ureteral calculous Details of Present Illness: Cystoscopy, left stent removal, left ureteroscopy with laser lithotripsy Allergies: Allergies Allergy/AdvReac Type Severity Reaction Status Date / Time No Known Allergies Allergy Verified 08/11/24 14:19 Review of Systems Sugical H&P ROS: Negative: Constitution, Cardiovascular, Respiratory, Neurological, Psychiatric, Hem-Onc, Allergic/Immunologic, Gastrointestinal, Genitourinary, Musculoskeletal, Integumentary, Endocrine and Eyes/Ears/Nose/Throat Exam Surgical H&P Exam: Normal: HEENT, Normal: Heart, Normal: Lungs, Normal: Extremities, Normal: Abdomen, Normal: Skin and Normal: Neurological Plan Diagnosis/Plan: Unchanged (Cystoscopy, left stent removal, left ureteroscopy with laser lithotripsy stent placed) I have reviewed the history and physical and performed a pertinent physical examination on my patient. No changes have occurred unless specified. Time Spent With Patient Time: Total time managing care of this patient today ____ minutes.
[2024-10-25] MEDS: Lactated Ringers 1,000 ML 100 ML IVCONT (11:41)
[2024-10-25 11:48] LABS: Glucose, Whole Blood 139 mg/dL (60-115)
--- NOTE | 2024-10-25 14:41 | P.OP_ITS ---
Operative Note Operative Note Date of Service: 10/25/24 Narrative: PreOperative Diagnosis: Large left renal stone and upper proximal ureteric stone Post Operative Diagnosis: Large left renal stone 1.5 cm at 1 cm upper proximal ureteric stone Procedure: - cystoscopy, left retrograde - removal left indwelling stent - left dilatation of ureteric orifice under fluoroscopy - left extensive ureteroscopy, laser lithotripsy, stone basketing using steerable vacuum aspirator sheath - modifier 22 - 100% longer than typical - 45 minutes Surgeon: Dr Candido Stacy Anesthesia: General Indications for procedure: Initial presentation with obstructing stone and infection. Stent placed. 1 cm proximal ureteric stone, 1.5 cm mid pole renal stone. Procedure: After informed consent was verified patient was brought to the operating placed in supine position. Anesthesia was administered per protocol. Patient was placed in modified dorsal lithotomy position and prepped and draped in a sterile fashion. Safety pause time-out and side of surgery confirmed. Antibiotics confirmed. A 22 Turkmen cystoscope was inserted per urethra. The urethra and bladder were normal in their entirety. Both ureteric orifices were in normal position. Stent emerging from left ureteric orifice. The left ureteric orifice was cannulated and a retrograde examination was performed. Filling defects seen proximal ureter and within kidney consistent with the above findings.. A Sensor guidewire was placed up to the level of the renal pelvis under fluoroscopy. The rigid cystoscope was removed and the inner cannula of ureteric access sheath was used under fluoroscopy to dilate the ureteric orifice. The steerable vacuum ureteric access sheath was placed and the inner cannula with access wire removed. The disposable digital flexible ureteral scope was placed. Using a combination of laser fibers the 274 and 362 the stone was broken into small pieces. It appeared to be consistent with an infectious type stone. We would alternate between laser fiber and 1.9 Turkmen ZeroTip basket to remove fragments. Suction was also used to remove fragments. The ureteric stone was removed 1st. Then the mid pole renal stone was broken up and removed. This took approximately 45 minutes which is 100% longer than typical and secondary to large size of the stones. At the completion of the procedure decision was made not to leave a stent in order to allow fragments to pass The bladder was emptied. The patient tolerated the procedure well and was extubated in the operating room, and transferred in stable condition to the recovery area. Pathology: Stone debris Drains: - HCPCS code C9761 describes cystourethroscopy, with ureteroscopy and/or pyeloscopy, with lithotripsy, and ureteral catheterization for steerable vacuum aspiration of the kidney, collecting system, ureter, bladder, and urethra if applicable (must use a steerable ureteral catheter).
== END 2024-10-25 16:32 | disposition home or self-care (01) ==
PROVIDERS: Visit Provider Urology
PROC: (CPT 52353; principal; 2024-10-25 12:40)
DX: N13.2 Hydronephrosis with renal and ureteral calculous obstruction (principal); Z96.0 Presence of urogenital implants; N30.00 Acute cystitis without hematuria; Z87.442 Personal history of urinary calculi; I10 Essential (primary) hypertension; E78.5 Hyperlipidemia, unspecified; E11.9 Type 2 diabetes mellitus without complications; E66.9 Obesity, unspecified; Z86.73 Personal history of transient ischemic attack (TIA), and cerebral infarction without residual deficits
CPT/HCPCS: 52353; 82365; 82947; 88300; C1758; C1769; J0131; J1956; J2003; J2405; J2704; J3010; Q9967

== ENCOUNTER → 2024-10-25 10:24 | Outpatient (BNV) | payer MEDICAID, SELFPAY | PROVIDERS: Visit Provider Urology | DX: N20.2 Calculus of kidney with calculus of ureter (principal) | CPT/HCPCS: 52353; 74420 ==

== ENCOUNTER 2025-01-24 08:39 | Outpatient (REF) | payer MEDICAID, SELFPAY ==
--- OUTSIDE RECORDS SUMMARY | 2025-01-24 09:01 | XMS_ITS | Clinical Summary ---
Author Organization 175 [facility] [place] [facility] Address [address] [place] [address] Phone Care Team Providers Care Frozen Pie Maker Name Role Phone Mirna Stringer MD Primary Care Provider [phone] Allergies No known active allergies Encounters Date Type Department Care Team Description 12/15/2024 9:45 AM EDT Consult Orthopedic Surgery [facility] [address] [phone] Chip Cerda DPM Foot drop, right (Primary Dx); Dermatophytosis of nail; Pain in toe of right foot; Pain in toe of left foot; Bilateral femoral artery stenosis (CMS/HCC V24); Diabetic mononeuropathy simplex (CMS/HCC V24, CMS/HCC V28); Type II diabetes mellitus with peripheral circulatory disorder (CMS/HCC V24, CMS/HCC V28) from Last 3 Months Social History Tobacco Use Types Packs/Day Years Used Date Smoking Tobacco: Never Assessed Comments Unknown Sex and Gender Information Value Date Recorded Sex Assigned at Not on file Legal Sex Female 7:28 AM EDT Gender Identity Not on file Sexual Orientation Not on file Plan of Treatment Upcoming Encounters Date Type Department Care Team ([facility] st Contact Info) Description 03/16/2025 9:30 AM EST Office Visit Orthopedic Surgery [facility] [address] [phone] Chip Cerda DPM [address] [phone] Health Maintenance Due Date Last Done Comments Breast Cancer Screening 1966 Colorectal Cancer Screening: Colonoscopy 1966 Diabetes: Annual GFR (Glomer ular Filtration Rate) 1966 Diabetes: Annual Foot Exam 1976 Diabetes: Annual Retina Eye Exam 1976 DTaP,Tdap,and Td Vaccines (1 - Tdap) 1985 Hepatitis B Vaccines (1 of 3 - 19+ 3-dose series) 1985 Pneumococcal Vaccine: 50+ Ye ars (1 of 2 - PCV) 1985 Cervical Cancer Screening: P ap Smear 08/18/1987 RSV Immunization Adult Patie nts (1 - Risk 50-74 years 1-dose series) 2016 Zoster Vaccines (1 of 2) 2016 Depression Screening 03/03/2024 Cholesterol Screening (Lipid Panel) 07/21/2024 HIV Screening 07/21/2024 Hepatitis C Screening 07/21/2024 Social Influencers of Health Screening 07/21/2024 COVID-19 Vaccine ( - 2024-2 6 season) 2024 Influenza Vaccine (#1) 2024 Diabetes: Annual Urine Albumin-Creatinine Ratio (uACR) 12/15/2024 Diabetes: Blood Sugar Contro l Test (HGBA1C) 12/15/2024 Hypertension/CHF/CAD Annual BMP Blood Test 12/15/2024 HIB Vaccines Aged Out No longer eligi [...] patient's age to complete this topic Insurance [place] Care Teams Frozen Pie Maker Relationship Specialty Start Date End Date Mirna Stringer MD [address] [place] [address] PCP - General Internal Medicine 07/21/24
--- OUTSIDE RECORDS SUMMARY | 2025-01-24 09:01 | XMS_ITS | Clinical Summary ---
Author Organization [employer] Address [address] [facility] [address] [place] [address] Care Team Providers Care Texture Artist Name Role Phone Lissette Araya MD Primary Care Pro vider Allergies No known active allergies Medications nicotine (Nicoderm, Step 1) 21 MG/24HR patchIndication s:Nicotine Dependence Place 1 patch on the skin 1 (one) time each day at the same time. 42 patch 1 09/08/2024 Active nicotine polacrilex (Commit) 2 MG lozenge Dissolve 1 lozenge (2 mg) in the mouth if needed for smoking cessation. 100 lozenge 1 09/08/2024 Active Aspirin Low Dose 81 MG chewable tablet Chew 1 tablet (81 mg) Once per day. 90 tablet 09/08/2024 Active amLODIPine (Norvasc) 5 MG tablet Take 1 tablet (5 mg) by mouth Once per day. 90 tablet 09/08/2024 Active atorvastatin (Lipitor) 80 MG tablet Take 1 tablet (80 mg) by mouth at bedtime. 90 tablet 09/08/2024 Active metFORMIN (Glucophage) 500 MG tablet Take 1 tablet (500 mg) by mouth with breakfast. 90 tablet 09/08/2024 Active metoprolol tartrate (Lopressor) 25 MG tablet Take 1 tablet (25 mg) by mouth 2 times daily. 180 tablet 09/08/2024 Active hydrOXYzine HCl (Atarax) 25 MG tablet TAKE 1 TABLET BY MOUTH EVERY DAY NEEDED FOR ANXIETY 30 tablet 2 12/24/2024 Active Active Problems Problem Noted Date Diagnosed Date Health care maintenance 09/09/2024 DM2 (diabetes mellitus, type 2) 09/09/2024 HTN (hypertension) 09/09/2024 Heavy tobacco smoker 09/09/2024 H/O stroke without residual deficits 09/09/2024 Thyroid nodule 09/09/2024 Nephrolithiasis 09/09/2024 History of alcohol abuse 09/09/2024 Encounters Date Type Department Care Team Description 01/04/2025 9:00 AM EST Office Visit [facility] [address] [place] [address] Lise, Cindy, OD Type 2 diabetes mellitus without ophthalmic manifestations (HCC) (Primary Dx); Hypermetropia, bilateral; H/O stroke without residual deficits 01/04/2025 Travel 12/24/2024 Refill [facility] [address] [place] [address] Lissette Araya MD from Last 3 Months Family History Medical History Relation Name Comments Throat cancer Father DM2 Mother Uterine cancer Mother Relation Name Status Comments Father Mother Social History Tobacco Use Types Packs/Day Years Used Date Smoking Tobacco: Every Day Cigarettes 0.5 1 Started: 02/2024 Passive Smoke Exposure: Current Tobacco Cessation:Ready to Q uit: Not Asked; Counseling Given: Not Answered Comments:Started smoking at her 21 y of age until now,maybe stopped 1 y , so in total smoking 38 years ,smokes in average 10 cig a day . PQT a year calc 20 Has tried patches in the past but stopped because was anxious Alcohol Use Standard Drinks/Week Comments Not Currently 12 (1 standard drink = 0.6 oz pure alcohol) hx of heavy alcohol use rum.wisky ,beers 24 a day Depression Answer Date Recorded Patient Health Questionnaire-9 Score 0 09/08/2024 Patient Health Questionnaire-9 Score 0 09/08/2024 Last PHQ-9: Questionnaire Data Not on file 0 09/08/2024 Depression Answer Date Recorded Patient Health Questionnaire-2 Score 0 09/08/2024 Comments Unknown Sex and Gender Information Value Date Recorded Sex Assigned at Female 07/19/2024 9:01 AM EDT Legal Sex Female 8:36 AM EDT Gender Identity Female 07/19/2024 9:01 AM EDT Sexual Orientation Straight 07/19/2024 9: 01 AM EDT Last Filed Vital Signs Vital Sign Reading Time Taken Comments Blood Pressure 108/60 09/08/2024 9:39 AM EDT Pulse 56 09/08/2024 9:39 AM EDT Temperature 36.1 C (96.9 F) 09/08/2024 9:39 AM EDT Respiratory Rate 20 09/08/2024 9:39 AM EDT Oxygen Saturation 100% 09/08/2024 9:3 9 AM EDT Inhaled Oxygen Concentration - - Weight 80.6 kg (177 lb 12.8 oz) 09/08/2024 9:39 AM EDT with wheel chair Height - - Body Mass Index - - Plan of Treatment Upcoming Encounters Date Type Department Care Team (Late st Contact Info) Description 01/25/2025 9:45 AM EST Office Visit [facility] [address] [place] [phone] Lissette Araya MD [address] [place], [place] [phone] Health Maintenance Due Date Last Done Comments CT Colonography 1966 Colonoscopy 1966 Colorectal Cancer Screening 1966 Diabetes: Hemoglobin A1C 1966 FIT DNA/Cologuard 1966 FIT 1966 FOBT 1966 HIV Screening 1966 Lipid Panel 1966 SDOH Screening 1966 Sigmoidoscopy 1966 Hepatitis C Screening 1984 DTaP/Tdap/Td Vaccines (1 - Tdap) 1985 Diabetes: Urine Protein Screening 1985 Hepatitis B Vaccines (1 of 3 - 19+ 3-dose series) 1985 Pneumococcal Vaccine: 50+ Years (1 of 2 - PCV) 1985 Pap Smear 08/18/1987 Cervical Cancer Screening 1996 HPV/Cotest 1996 Mammogram 2006 Zoster Vaccines (1 of 2) 2016 COVID-19 Vaccine (1 - season) 2024 Influenza Vaccine (#1) 2024 Diabetes: Foot Exam 07/19/2025 07/19/2024 Alcohol/Substance Use Screening 09/08/2025 09/08/2024 Depression Screening 09/08/2025 09/08/2024, 09/09/19 25 Disability Screening 09/08/2025 09/08/2024 Tobacco Screening 01/04/2026 01/04/2025 Eye Exam 01/04/2027 01/04/2025, 06/2024, 01/04/2025, Additional history exists RSV Patients and Patients Aged 60 years or older (1 - 1-dose 75+ series) 2041 HIB Vaccines Aged Out No longer eligi [...] patient's age to complete this topic Meningococcal Vaccine Aged Out No jayla yue eligible based on patient's age to complete this topic RSV under 20 months Aged Out No longe r eligible based on patient's age to complete this topic Rotavirus Vaccines Aged Out No longer eligible based on patient's age to complete this topic Insurance [facility] C3 Care Teams Texture Artist Relationship Specialty Start Date End Date Lissette Araya MD [address] [place] [phone] PCP - General Internal Medicine 09/08/24
[2025-01-24 11:29] LABS: Hematocrit 42.9 % (37.0-47.0); Hemoglobin 14.1 g/dl (12.0-16.0); Mean Corpuscular HGB Conc 32.9 g/dl (31.0-35.0); Mean Corpuscular Hemoglobin 28.5 pg (27.0-33.0); Mean Corpuscular Volume 86.8 fL (80.0-98.0); NRBC Abs Auto 0.000 X10*3/uL (0.0-0.012); NRBC Pct Auto 0.0 /100WBC (0.0-0.2); Platelet Count 200 X10*3/uL (160-400); Red Blood Count 4.94 X10*6/uL (4.20-5.50); White Blood Count 7.8 X10*3/uL (4.8-10.8)
[2025-01-24 11:55] LABS: Microalbum/Creatinine Ratio Ur 41.6 ug/mg cr (<30)
[2025-01-24 12:11] LABS: Syphilis Screen Nonreactive (Nonreactive)
[2025-01-24 12:13] LABS: HBS Num1 0.67 mIU/mL (0-7.99); HBc Num1 0.11 S/CO (0.00-0.79); HBsAGNum1 0.35 S/CO (0.00-0.99); HIV Num 1 0.08 S/CO (0.00-0.99); Hepatitis B Surface Antigen Negative (Negative); ~HepC Num1 0.09 S/CO (0.00-0.79); ~Hepatitis B Surface Antibody NONREACTIVE (Nonreactive); ~Hepatitis C Antibody Nonreactive (Nonreactive)
[2025-01-24 12:24] LABS: Folate 9.7 ng/mL (> or = 4.0); Vitamin B12 234 pg/mL (200-900)
[2025-01-24 12:51] LABS: CT PCR Urine NOT DETECTED (Not Detect.); NG PCR Urine NOT DETECTED (Not Detect.)
[2025-01-24 13:11] LABS: Parathyroid Hormone Intact 121.8 pg/mL (8.7-77.1)
[2025-01-24 15:11] LABS: Alanine Aminotransferase 18 U/L (0-31); Albumin Level 4.4 g/dL (3.5-5.0); Alkaline Phosphatase 90 U/L (39-117); Anion Gap 13 (12-20); Aspartate Amino Transferase 24 U/L (5-31); Blood Urea Nitrogen 11 mg/dL (9-16); Calcium 9.8 mg/dL (8.4-10.2); Carbon Dioxide 27 mmol/L (22-29); Chloride 107 mmol/L (96-108); Cholesterol 286 mg/dL (<200); Estimated Glomerular Filt Rate > 60; HDL Cholesterol 40 mg/dL (>40); Potassium 4.0 mmol/L (3.3-5.1); Sodium 143 mmol/L (135-145); Total Protein 7.7 g/dL (6.5-8.0); Triglycerides 196 mg/dL (<150)
== END 2025-01-24 08:40 | disposition home or self-care (01) ==
LOC: HO.HHCL 08:39
PROVIDERS: PCP Student in an Organized Health Care Education/Training Program; Visit Provider Student in an Organized Health Care Education/Training Program
DX: Z00.00 Encounter for general adult medical examination without abnormal findings (principal); Z11.59 Encounter for screening for other viral diseases; Z11.4 Encounter for screening for human immunodeficiency virus [HIV]; R79.89 Other specified abnormal findings of blood chemistry; Z20.2 Contact with and (suspected) exposure to infections with a predominantly sexual mode of transmission
CPT/HCPCS: 80053; 80061; 82043; 82306; 82570; 82607; 82746; 83036; 83970; 84443; 85027; 86704; 86706; 86780; 86803; 87340; 87389; 87491; 87591